=== PATIENT | female | born 1970 | race Caucasian/White ===

== ENCOUNTER 2021-04-16 20:17 | Observation (INO) | payer OTHER ==
[2021-04-16] MEDS ORDERED: METOCLOPRAMIDE 5 MG/ML 2 ML VIAL IVP STA (21:15)
[2021-04-16] MEDS ORDERED: MORPHINE SULFATE 4 MG/ML SYRINGE IV STA (21:15)
[2021-04-16] MEDS ORDERED: SODIUM CHLORIDE 0.9% 1,000 ML IV STA ×2 (21:15→22:20)
[2021-04-16] MEDS ORDERED: diphenhydrAMINE 50 MG/ML 1 ML VIAL IVP STA (21:15)
[2021-04-16] MEDS ORDERED: FAMOTIDINE 20 MG/2 ML VIAL IV STA (21:16)
[2021-04-16 21:36] LABS: Basophils % (A) 0 %; Eosinophils % (A) 0 %; HCT 48.7 % (34.0-46.0); HGB 16.8 gm/dL (11.4-16.0); Lymphocytes # (A) 0.6 k/uL (1.0-4.8); Lymphocytes % (A) 4 %; MCH 33.7 pg (25.0-35.0); MCHC 34.5 g/dL (31.0-37.0); MCV 97.5 fL (80.0-100.0); Mean Platelet Volume 7.1; Monocytes # (A) 0.3 k/uL (0-1.0); Monocytes % (A) 2 %; Neutrophils # (A) 14.2 k/uL (1.3-7.7); Neutrophils % (A) 93 %; Platelet Count 402 k/uL (150-450); RBC 4.99 m/uL (3.80-5.40); RDW 12.7 % (11.5-15.5); WBC 15.3 k/uL (3.8-10.6)
[2021-04-16 21:51] LABS: ALT 21 U/L (4-34); AST 25 U/L (14-36); African American GFR (CKD) >90 (>60 ml/min/1.73 sqM); Alkaline Phosphatase 77 U/L (38-126); Amylase 44 U/L (30-110); Anion Gap 17 mmol/L; Blood Urea Nitrogen 17 mg/dL (7-17); Calcium 10.2 mg/dL (8.4-10.2); Carbon Dioxide 21 mmol/L (22-30); Chloride 100 mmol/L (98-107); Glucose 168 mg/dL (74-99); Lipase 27 U/L (23-300); Non-African American GFR(CKD) >90 (>60 ml/min/1.73 sqM); Sodium 138 mmol/L (137-145); Total Bilirubin 1.2 mg/dL (0.2-1.3)
[2021-04-16 21:52] LABS: INR 0.9 (<1.2); Partial Thromboplastin Time 21.1 sec (22.0-30.0); Prothrombin Time 10.3 sec (9.0-12.0)
[2021-04-16] MEDS ORDERED: HALOPERIDOL LACTATE 5 MG/ML 1 ML VIAL IVP STA (22:05)
[2021-04-16] MEDS ORDERED: MAGNESIUM SULFATE-D5W PMX 1 GM in DEXTROSE/WATER 1 100ML.BAG IVPB ONE (22:12)
--- NOTE | 2021-04-16 22:28 | CT ---
EXAMINATION TYPE: CT abdomen pelvis w con DATE OF EXAM: 04/16/2021 COMPARISON: None HISTORY: Abdominal pain CT DLP: mGycm Automated exposure control for dose reduction was used. CONTRAST: The contrast was Isovue 100 mL. Lung bases are clear. There is no pleural effusion. Heart size is normal. There is no pericardial eff usion. Liver spleen stomach and pancreas gallbladder appear intact. The bile ducts are not dilated. There is no free fluid. There is no adrenal mass. Kidneys show satisfactory contrast opacification. T here is no hydronephrosis. Delayed images show normal renal excretion. Bladder distends smoothly. The re is no inguinal hernia. Terminal ileum is intact. Appendix is medial and appears normal. Tip of the appendix is in the right lower pelvis. There is no mesenteric edema. There is no ascites or free air. There is no bowel obstruction. The douglas brunilda is anteverted. There is no pelvic mass. The lumbar vertebra have normal alignment. There is degenerative disc space narrowing at L4-5 with va cuum disc and spurring. No compression fracture. The bony pelvis is intact. The hip joints are intact . IMPRESSION: Normal appendix. No sign of acute abdomen and pelvis.
--- NOTE | 2021-04-16 22:32 | XR ---
EXAMINATION TYPE: XR chest 2V DATE OF EXAM: 04/16/2021 COMPARISON: NONE HISTORY: Pain TECHNIQUE: 2 views FINDINGS: Heart and mediastinum are normal. Lungs are clear. Diaphragm is normal. Bony thorax appears normal. IMPRESSION: Normal chest.
[2021-04-16] MEDS ORDERED: POTASSIUM CHLORIDE ER 20 MEQ TAB.ER PO STA (22:34)
[2021-04-16] MEDS ORDERED: NALOXONE 0.4 MG/ML 1 ML VIAL IV PRN (23:08)
[2021-04-16] MEDS ORDERED: ONDANSETRON 4 MG/2 ML VIAL IVP PRN (23:08)
--- NOTE | 2021-04-16 23:08 | ED ---
General Adult HPI - General Chief complaint: Abdominal Pain Stated complaint: Vomiting Time Seen by Provider: 04/16/21 21:09 Source: patient, RN notes reviewed, old records reviewed Mode of arrival: wheelchair Limitations: no limitations - History of Present Illness Initial comments: Patient is a 51-year-old female who presents emergency Department complaining of epigastric abdominal pain with nausea and vomiting starting at 9 AM today. She states this is happened previously. She does endorse daily marijuana use. Possibly she may have a heart history as well. Also has a history diverticulitis. Describes emesis is nonbilious nonbloody. States she may have had an episode of diarrhea as well. Describes abdominal pain as achy, sharp primarily epigastric region with no radiation elsewhere. Denies any chest pain, shortness of breath. Continues to say she is nauseous. She has no other acute complaints at this time. Presents over concern for her nausea and vomiting. - Related Data Allergies Allergy/AdvReac Type Severity Reaction Status Date / Time sulfamethoxazole Allergy Nausea & Verified 04/16/21 20:23 [From Bactrim] Vomiting & Diarrhea trimethoprim [From Bactrim] Allergy Nausea & Verified 04/16/21 20:23 Vomiting & Diarrhea Review of Systems ROS Statement: Those systems with pertinent positive or pertinent negative responses have been documented in the HPI. Review of Systems: CONST: Denies fever EYES: Denies blurry vision ENT: Denies nasal congestion C/V: Denies Chest pain RESP: Denies shortness of breath GI: Endorses epigastric abdominal pain : Denies dysuria SKIN: Denies rash. MSK: Denies joint pain. NEURO: Denies headache ROS Other: All systems not noted in ROS Statement are negative. Past Medical History Past Medical History: Coronary Artery Disease (CAD) Additional Past Medical History / Comment(s): diverticulitis History of Any Multi-Drug Resistant Organisms: None Reported Past Surgical History: Heart Catheterization With Stent Past Psychological History: No Psychological Hx Reported Smoking Status: Current every day smoker Past Alcohol Use History: None Reported Past Drug Use History: Marijuana General Exam - General Exam Comments Initial Comments: General: Appears in mild to moderate distress secondary to active nausea. Patient is dry heaving at bedside. HEAD: Normal with no signs of head trauma. EYES: PERRLA, EOMI, conjunctiva normal, no discharge. ENT: Hearing grossly intact, normal oropharynx. Dry oropharynx. RESPIRATORY: Clear breath sounds bilaterally. No wheezes, rales, or rhonchi. C/V: Regular rate and rhythm. S1 and S2 auscultated, no edema, peripheral pulses 2+ and intact throughout ABD: Abdomen is soft, nondistended. Patient is mildly tender to palpation epigastric region. No guarding. No rebound tenderness. No peritoneal signs. No CVA tenderness to percussion. EXT: Normal range of motion, no obvious deformity SKIN: No rashes or lesions observed on exposed skin. NEURO: Alert and oriented 4. No focal deficits. Limitations: no limitations Course Vital Signs 04/16/21 04/16/21 04/16/21 20:19 21:15 21:43 Temperature 98.1 F Pulse Rate 57 L 67 75 Respiratory 22 22 22 Rate Blood Pressure 116/53 128/78 138/94 O2 Sat by Pulse 99 98 100 Oximetry 04/16/21 22:00 Temperature Pulse Rate 77 Respiratory 22 Rate Blood Pressure 137/87 O2 Sat by Pulse 98 Oximetry Medical Decision Making - Medical Decision Making This and the patient's presentation and physical exam, there was concern for intra-abdominal process for current symptoms. Therefore we will sent likely to the patient with a GI cocktail as well as IV fluids. We will obtain abdominal laboratory studies, CT and pelvis, as well as a cardiac workup for atypical p resentation of ACS. Patient was in agreement this plan. EKG showed a left bundle branch block of unknown chronicity, but no other signs of acute ischemia. Chest x-ray revealed no acute cardiopulmonary process. CT of the pelvis revealed no acute intra-abdominal process. Lavatory studies are remarkable for a lactic acidosis of 3.1 as well as signs of hemoconcentration and elevated to WVC, hemoglobin and platelet count. Troponin is negative. Potassium is low at 3.0, we will replace with IV potassium. Patient's lavatory studies are likely secondary to dehydration from her nausea and vomiting. She did require re-dosing with Haldol for nausea. I did discuss the findings with the patient. I believe it is best the patient be admitted to the hospital at this time. She was in agreement this plan. The observation admitting attending, Dr. Sheffield was in agreement this plan. Repeat lactic acid will be obtained following fluid hydration. - Lab Data Result diagrams: 04/16/21 21:21 04/16/21 21:21 Lab Results 04/16/21 04/16/21 04/16/21 Range/Units 21:21 21:21 21:21 WBC 15.3 H (3.8-10.6) k/uL RBC 4.99 (3.80-5.40) m/uL Hgb 16.8 H (11.4-16.0) gm/dL Hct 48.7 H (34.0-46.0) % MCV 97.5 (80.0-100.0) fL MCH 33.7 (25.0-35.0) pg MCHC 34.5 (31.0-37.0) g/dL RDW 12.7 (11.5-15.5) % Plt Count 402 (150-450) k/uL MPV 7.1 Neutrophils % 93 % Lymphocytes % 4 % Monocytes % 2 % Eosinophils % 0 % Basophils % 0 % Neutrophils # 14.2 H (1.3-7.7) k/uL Lymphocytes # 0.6 L (1.0-4.8) k/uL Monocytes # 0.3 (0-1.0) k/uL Eosinophils # 0.0 (0-0.7) k/uL Basophils # 0.0 (0-0.2) k/uL PT 10.3 (9.0-12.0) sec INR 0.9 (<1.2) APTT 21.1 L (22.0-30.0) sec Sodium 138 (137-145) mmol/L Potassium 3.0 L (3.5-5.1) mmol/L Chloride 100 (98-107) mmol/L Carbon Dioxide 21 L (22-30) mmol/L Anion Gap 17 mmol/L BUN 17 (7-17) mg/dL Creatinine 0.72 (0.52-1.04) mg/dL Est GFR (CKD-EPI)AfAm >90 (>60 ml/min/1.73 sqM) Est GFR (CKD-EPI)NonAf >90 (>60 ml/min/1.73 sqM) Glucose 168 H (74-99) mg/dL Plasma Lactic Acid Anthony (0.7-2.0) mmol/L Calcium 10.2 (8.4-10.2) mg/dL Total Bilirubin 1.2 (0.2-1.3) mg/dL AST 25 (14-36) U/L ALT 21 (4-34) U/L Alkaline Phosphatase 77 (38-126) U/L Troponin I (0.000-0.034) ng/mL Total Protein 8.0 (6.3-8.2) g/dL Albumin 5.0 (3.5-5.0) g/dL Amylase 44 (30-110) U/L Lipase 27 (23-300) U/L 04/16/21 04/16/21 Range/Units 21:21 21:21 WBC (3.8-10.6) k/uL RBC (3.80-5.40) m/uL Hgb (11.4-16.0) gm/dL Hct (34.0-46.0) % MCV (80.0-100.0) fL MCH (25.0-35.0) pg MCHC (31.0-37.0) g/dL RDW (11.5-15.5) % Plt Count (150-450) k/uL MPV Neutrophils % % Lymphocytes % % Monocytes % % Eosinophils % % Basophils % % Neutrophils # (1.3-7.7) k/uL Lymphocytes # (1.0-4.8) k/uL Monocytes # (0-1.0) k/uL Eosinophils # (0-0.7) k/uL Basophils # (0-0.2) k/uL PT (9.0-12.0) sec INR (<1.2) APTT (22.0-30.0) sec Sodium (137-145) mmol/L Potassium (3.5-5.1) mmol/L Chloride (98-107) mmol/L Carbon Dioxide (22-30) mmol/L Anion Gap mmol/L BUN (7-17) mg/dL Creatinine (0.52-1.04) mg/dL Est GFR (CKD-EPI)AfAm (>60 ml/min/1.73 sqM) Est GFR (CKD-EPI)NonAf (>60 ml/min/1.73 sqM) Glucose (74-99) mg/dL Plasma Lactic Acid Anthony 3.1 H* (0.7-2.0) mmol/L Calcium (8.4-10.2) mg/dL Total Bilirubin (0.2-1.3) mg/dL AST (14-36) U/L ALT (4-34) U/L Alkaline Phosphatase (38-126) U/L Troponin I <0.012 (0.000-0.034) ng/mL Total Protein (6.3-8.2) g/dL Albumin (3.5-5.0) g/dL Amylase (30-110) U/L Lipase (23-300) U/L - EKG Data -: EKG Interpreted by Me EKG Comments: 12-lead Electrocardiogram Interpretation Note EKG was reviewed and interpreted by myself. 12-lead ECG performed at 2250 is interpreted by me as revealing normal sinus rhythm at a rate of 78 beats per minute. [place] is normal. MS interval is 163 ms, QRS duration is 146 ms, QTc is 477 ms.. There is a left bundle branch block present. There were no ST or T wave abnormalities to suggest myocardial ischemia or injury. R wave progression across the precordium was satisfactory. By my interpretation this EKG is non- diagnostic for acute ischemia. Disposition Clinical Impression: Dehydration, Intractable nausea and vomiting, Lactic acidosis Disposition: ADMITTED IP TO THIS HOSP Condition: Stable Referrals: None,Stated [Primary Care Provider] - 1-2 days
[2021-04-16] MEDS: POTASSIUM CHLORIDE 10 MEQ in WATER FOR INJECTION 1 100ML.BAG IVPB SCH (23:32)
[2021-04-16] MEDS: SODIUM CHLORIDE 0.9% 1,000 ML IV SCH (23:34)
[2021-04-17] MEDS: MELATONIN 3 MG TABLET PO SCH ×2 (00:59→19:34)
[2021-04-17] MEDS: POTASSIUM CHLORIDE 10 MEQ in WATER FOR INJECTION 1 100ML.BAG IVPB SCH (01:00)
[2021-04-17] MEDS ORDERED: POTASSIUM CHLORIDE ER 20 MEQ TAB.ER PO STA (01:20)
--- NOTE | 2021-04-17 01:21 | P.HPIM ---
History of Present Illness H&P Date: 04/16/21 Patient is a 51-year-old female with image of marijuana abuse who presents to the emergency room with complaints of nausea, vomiting, abdominal pain. Patient reports that his symptoms started yesterday morning at around 9 AM and have symptoms persisted. She reports minimal oral intake due to her significant episodes of vomiting. She reports daily heavy use of marijuana with last use the night prior to the onset of symptoms. Reports feeling tired along with an achy diffuse abdominal discomfort due to vomiting. Denied additional complaints. Denied fever, chills, chest pain, shortness of breath, cough, or diarrhea. Laboratory evaluation was unremarkable for lactic acidosis at 3.1, potassium 3.0, bili 6 out of 15.3, hemoglobin 16.8. CT abdomen and pelvis was unremarkable with chest x-ray unremarkable and EKG showing sinus rhythm with sinus arrhythmia at 78 bpm with a left bundle branch block (no prior EKGs available for comparison). Review of systems: Pertinent positives and negatives as discussed in HPI, a complete review of systems was performed and all other systems are negative. Physical examination: General: non toxic, no distress, appears at stated age, overweight Derm: no unusual rashes/lesions no unusual ecchymoses, warm, dry Head: atraumatic, normocephalic, symmetric Eyes: EOMI, no lid lag, anicteric sclera, pupils equal round reactive to light ENT: Nose and ears atraumatic, no thrush, no pharyngeal erythema Neck: No thyromegaly, no cervical lymphadenopathy, trachea midline, supple Mouth: no lip lesion, mucus membranes very dry Cardiovascular: S1S2 reg, no murmur, positive posterior tibial pulse bilateral, no edema, capillary refill less than 2 seconds Lungs: CTA bilateral, no rhonchi, no rales , no accessory muscle use Abdominal: soft, nontender to palpation, no guarding, no appreciable organomegaly, normal bowel sounds Ext: no gross muscle atrophy, muscle strength 4 out of 5 in all 4 extremities grossly, no contractures, Neuro: CN II-XI grossly intact, light touch intact all 4 extremities, finger to nose within normal limits, Psych: Alert, oriented, appropriate affect Assessment/plan Intractable nausea and vomiting, possibly secondary to hyperemesis cannabinoid syndrome -Antiemetics -IV fluids -Advised on importance of cessation for marijuana use -Advance diet as tolerated Lactic acidosis -Continue with IV fluids -Monitor for resolutiona Elevated WBC count and hemoglobin -Suspected due to hemoconcentration from dehydration -Monitor for now Hypokalemia -Replace and monitor Hyperglycemia -Check A1c -Insulin sliding scale and blood glucose monitoring DVT prophylaxis -Heparin subq The patient is admitted with an anticipated less than 2 midnight stay for evaluation of nausea and vomiting CODE STATUS: Full Code Discussed with: Patient Anticipated discharge date: in am Anticipated discharge place: Home Past Medical History Past Medical History: Coronary Artery Disease (CAD) Additional Past Medical History / Comment(s): diverticulitis History of Any Multi-Drug Resistant Organisms: None Reported Past Surgical History: Heart Catheterization With Stent Past Psychological History: No Psychological Hx Reported Smoking Status: Current every day smoker Past Alcohol Use History: None Reported Past Drug Use History: Marijuana Medications and Allergies Allergies Allergy/AdvReac Type Severity Reaction Status Date / Time sulfamethoxazole Allergy Nausea & Verified 04/16/21 20:23 [From Bactrim] Vomiting & Diarrhea trimethoprim [From Bactrim] Allergy Nausea & Verified 04/16/21 20:23 Vomiting & Diarrhea Physical Exam Vitals: Vital Signs Temp Pulse Resp BP Pulse Ox 04/16/21 22:00 77 22 137/87 98 04/16/21 21:43 75 22 138/94 100 04/16/21 21:15 67 22 128/78 98 04/16/21 20:19 98.1 F 57 L 22 116/53 99 Intake and Output 04/16/21 04/16/21 04/17/21 14:59 22:59 07:59 Other: Weight 61.235 kg Results CBC & Chem 7: 04/16/21 21:21 04/16/21 21:21 Labs: Abnormal Lab Results - Last 24 Hours (Table) 04/16/21 04/16/21 04/16/21 Range/Units 21:21 21:21 21:21 WBC 15.3 H (3.8-10.6) k/uL Hgb 16.8 H (11.4-16.0) gm/dL Hct 48.7 H (34.0-46.0) % Neutrophils # 14.2 H (1.3-7.7) k/uL Lymphocytes # 0.6 L (1.0-4.8) k/uL APTT 21.1 L (22.0-30.0) sec Potassium 3.0 L (3.5-5.1) mmol/L Carbon Dioxide 21 L (22-30) mmol/L Glucose 168 H (74-99) mg/dL Plasma Lactic Acid Anthony (0.7-2.0) mmol/L 04/16/21 Range/Units 21:21 WBC (3.8-10.6) k/uL Hgb (11.4-16.0) gm/dL Hct (34.0-46.0) % Neutrophils # (1.3-7.7) k/uL Lymphocytes # (1.0-4.8) k/uL APTT (22.0-30.0) sec Potassium (3.5-5.1) mmol/L Carbon Dioxide (22-30) mmol/L Glucose (74-99) mg/dL Plasma Lactic Acid Anthony 3.1 H* (0.7-2.0) mmol/L
[2021-04-17 01:39] LABS: Appearance,Urine Clear (Clear); Bilirubin,Urine Negative (Negative); Blood,Urine Negative (Negative); Color,Urine Yellow; Glucose,Urine (UA) Negative (Negative); Ketones,Urine 4+ (Negative); Leukocyte Esterase,Urine Negative (Negative); Nitrite,Urine Negative (Negative); Protein,Urine Trace (Negative); Specific Gravity,Urine >1.050 (1.001-1.035); Urobilinogen,Urine <2.0 mg/dL (<2.0)
[2021-04-17 07:03] LABS: Basophils % (A) 0 %; Eosinophils % (A) 0 %; HCT 42.7 % (34.0-46.0); HGB 14.2 gm/dL (11.4-16.0); Lymphocytes # (A) 0.8 k/uL (1.0-4.8); Lymphocytes % (A) 7 %; MCH 32.5 pg (25.0-35.0); MCHC 33.1 g/dL (31.0-37.0); MCV 98.2 fL (80.0-100.0); Mean Platelet Volume 6.9; Monocytes # (A) 0.4 k/uL (0-1.0); Monocytes % (A) 3 %; Neutrophils # (A) 11.1 k/uL (1.3-7.7); Neutrophils % (A) 89 %; Platelet Count 282 k/uL (150-450); RBC 4.35 m/uL (3.80-5.40); RDW 12.4 % (11.5-15.5); WBC 12.5 k/uL (3.8-10.6)
[2021-04-17 07:28] LABS: ALT 14 U/L (4-34); AST 22 U/L (14-36); African American GFR (CKD) >90 (>60 ml/min/1.73 sqM); Albumin 3.5 g/dL (3.5-5.0); Alkaline Phosphatase 45 U/L (38-126); Anion Gap 8 mmol/L; Blood Urea Nitrogen 13 mg/dL (7-17); Calcium 8.3 mg/dL (8.4-10.2); Carbon Dioxide 17 mmol/L (22-30); Chloride 109 mmol/L (98-107); Glucose 107 mg/dL (74-99); Non-African American GFR(CKD) >90 (>60 ml/min/1.73 sqM); Potassium 3.5 mmol/L (3.5-5.1); Sodium 134 mmol/L (137-145); Total Bilirubin 0.6 mg/dL (0.2-1.3); Total Protein 6.1 g/dL (6.3-8.2)
[2021-04-17 08:22] LABS: Glucose,Whole Blood 108 mg/dL (75-99)
[2021-04-17] MEDS: INSULIN ASPART (NovoLOG) 100 UNIT/ML VIAL SQ SCH ×2 (08:50→12:54)
[2021-04-17] MEDS: ACETAMINOPHEN TAB 325 MG TAB PO PRN ×2 (11:56→18:23)
[2021-04-17 12:50] LABS: Glucose,Whole Blood 120 mg/dL (75-99)
[2021-04-17] MEDS: MORPHINE SULFATE 4 MG/ML SYRINGE IV PRN ×3 (13:22→23:30)
--- NOTE | 2021-04-17 15:19 | P.PN ---
Subjective Progress Note Date: 04/17/21 Principal diagnosis: vomiting Patient is still feeling nauseous, she took few bites of her lunch did not throw up but still feel dehydrated. No fevers. No pain. Objective - Vital Signs Vital signs: Vital Signs Temp 98.5 F 04/17/21 07:32 Pulse 95 04/17/21 07:32 Resp 20 04/17/21 03:10 BP 106/67 04/17/21 07:32 Pulse Ox 100 04/17/21 07:32 Intake & Output 04/16/21 04/17/21 04/17/21 17:59 06:59 18:59 Intake Total 120 Balance 120 Weight Intake: Oral 120 Other: # Voids 1 - Exam Constitutional: No acute distress, conversant, pleasant Eyes:Anicteric sclerae, moist conjunctiva, no lid-lag, PERRLA, ENMT: Oropharynx clear, no erythema, exudates Neck: Supple, FROM, no masses, or JVD, No carotid bruits, No thyromegaly Lungs: Clear to auscultation, Clear to percussion, Normal respiratory effort, no accessory muscle use Cardiovascular: Heart regular in rate and rhythm, No murmurs, gallops, or rubs, No peripheral edema Abdominal: Soft, Nontender, no guarding, rebound or rigidity, Normoactive bowel sounds, No hepatomegaly, No splenomegaly, No palpable mass Skin: Normal temperature, tone, texture, turgor, no induration, No subcutaneous nodules, No rash, lesions, No ulcers Extremities: No digital cyanosis, No clubbing, Pedal pulses intact and symmetrical, Radial pulses intact and symmetrical, No calf tenderness Psychiatric: Alert and oriented to person, place and time, appropriate affect, intact judgement Neuro: Muscles Strength 5/5 in all 4 extremities, Sensation to light touch grossly present throughout, Cranial nerves II-XII grossly intact, no focal sensory deficits - Labs CBC & Chem 7: 04/17/21 06:28 04/17/21 06:28 Labs: Abnormal Lab Results - Last 24 Hours (Table) 04/16/21 04/16/21 04/16/21 Range/Units 21:21 21:21 21:21 WBC 15.3 H (3.8-10.6) k/uL Hgb 16.8 H (11.4-16.0) gm/dL Hct 48.7 H (34.0-46.0) % Neutrophils # 14.2 H (1.3-7.7) k/uL Lymphocytes # 0.6 L (1.0-4.8) k/uL APTT 21.1 L (22.0-30.0) sec Sodium (137-145) mmol/L Potassium 3.0 L (3.5-5.1) mmol/L Chloride (98-107) mmol/L Carbon Dioxide 21 L (22-30) mmol/L Glucose 168 H (74-99) mg/dL POC Glucose (mg/dL) (75-99) mg/dL Plasma Lactic Acid Anthony (0.7-2.0) mmol/L Calcium (8.4-10.2) mg/dL Total Protein (6.3-8.2) g/dL Ur Specific [place] (1.001-1.035) Urine Protein (Negative) Urine Ketones (Negative) 04/16/21 04/17/21 04/17/21 Range/Units 21:21 00:27 06:28 WBC 12.5 H (3.8-10.6) k/uL Hgb (11.4-16.0) gm/dL Hct (34.0-46.0) % Neutrophils # 11.1 H (1.3-7.7) k/uL Lymphocytes # 0.8 L (1.0-4.8) k/uL APTT (22.0-30.0) sec Sodium (137-145) mmol/L Potassium (3.5-5.1) mmol/L Chloride (98-107) mmol/L Carbon Dioxide (22-30) mmol/L Glucose (74-99) mg/dL POC Glucose (mg/dL) (75-99) mg/dL Plasma Lactic Acid Anthony 3.1 H* (0.7-2.0) mmol/L Calcium (8.4-10.2) mg/dL Total Protein (6.3-8.2) g/dL Ur Specific [place] >1.050 H (1.001-1.035) Urine Protein Trace H (Negative) Urine Ketones 4+ H (Negative) 04/17/21 04/17/21 04/17/21 Range/Units 06:28 08:20 12:49 WBC (3.8-10.6) k/uL Hgb (11.4-16.0) gm/dL Hct (34.0-46.0) % Neutrophils # (1.3-7.7) k/uL Lymphocytes # (1.0-4.8) k/uL APTT (22.0-30.0) sec Sodium 134 L (137-145) mmol/L Potassium (3.5-5.1) mmol/L Chloride 109 H (98-107) mmol/L Carbon Dioxide 17 L (22-30) mmol/L Glucose 107 H (74-99) mg/dL POC Glucose (mg/dL) 108 H 120 H (75-99) mg/dL Plasma Lactic Acid Anthony (0.7-2.0) mmol/L Calcium 8.3 L (8.4-10.2) mg/dL Total Protein 6.1 L (6.3-8.2) g/dL Ur Specific [place] (1.001-1.035) Urine Protein (Negative) Urine Ketones (Negative) Assessment and Plan Plan: Intractable nausea and vomiting, possibly secondary to hyperemesis cannabinoid syndrome -Antiemetics -IV fluids -Advised on importance of cessation for marijuana use -Advance diet as tolerated Lactic acidosis -Resolved, continue with IV fluids Elevated WBC count and hemoglobin -Suspected due to hemoconcentration from dehydration -Monitor for now Hypokalemia -Replace and monitor Hyperglycemia -A1c 5.3, no insulin indicated, No DM. DVT prophylaxis -Heparin subq CODE STATUS: Full Code Discussed with: Patient Anticipated discharge date: in am Anticipated discharge place: Home
[2021-04-17] MEDS: SODIUM CHLORIDE 0.9% 1,000 ML IV SCH ×2 (19:16→19:33)
[2021-04-17 21:55] LABS: Glucose,Whole Blood 144 mg/dL (75-99)
[2021-04-18] MEDS: MORPHINE SULFATE 4 MG/ML SYRINGE IV PRN ×2 (03:29→07:49)
[2021-04-18 03:31] VITALS: PULSE 69
[2021-04-18] MEDS: SODIUM CHLORIDE 0.9% 1,000 ML IV SCH (05:14)
[2021-04-18 07:40] LABS: Glucose,Whole Blood 84 mg/dL (75-99)
[2021-04-18 08:04] VITALS: BP 112/64; RESP 16; TEMP 97.7
--- NOTE | 2021-04-18 09:24 | P.DS ---
<Hua Paeg - Last Filed: 04/18/21 19:05> Providers Expected date of discharge: 04/18/21 Hospital Course: Discharge Diagnosis: Cannabinoid hyperemesis syndrome Intractable nausea and vomiting secondary to above Lactic acidosis, resolved with IV fluids Leukocytosis, improved Hypokalemia, resolved Hospital Course: Patient is a very pleasant 51-year-old female with a past medical history of daily marijuana use. Patient presents to the emergency department on 04/16/21 with a chief complaint of intractable nausea, vomiting, and abdominal pain. She was seen and evaluated in the emergency department and found to have lactic acidosis with a lactate of 3.1, hypokalemia with potassium of 3.0, and leukocytosis with WBC count of 15.3. Patient underwent a CT abdomen and pelvis with contrast negative for acute intra-abdominal or intrapelvic process. Chest x-ray negative for acute cardiopulmonary process. An EKG showing normal sinus rhythm at 78 bpm. Patient received continuous IV hydration and potassium was supplemented. Hemoglobin A1c was drawn resulting at 5.3. Patient received supportive treatment with anti-emetics resulting in full resolution of nausea, vomiting and abdominal pain. Patient seen and evaluated at bedside this morning reports full resolution of symptoms. Patient reports she is ready for discharge and is medically stable for discharge at this time. Patient denied having any further questions, concerns, or complaints. Patient medically stable for discharge and to follow up outpatient with her PCP. Patient encouraged on cessation of marijuana use. Physical examination: Patient seen and examined at bedside. She reports complete cessation of abdominal pain, nausea, vomiting, and denies having any headache, lightheade dness, dizziness, chest pain, palpitations, or shortness of breath. Vital signs reviewed and stable. General: Nontoxic, no distress and appears stated age. Derm: Skin warm and dry, normal coloration for ethnicity. Head: Atraumatic, normocephalic and symmetric. Eyes: EOMs intact, no lid lag, and anicteric sclera Mouth: no lip lesions, mucus membranes moist Cardiovascular: regular rate and rhythm with normal S1S2, no murmur, positive posterior tibial pulses bilaterally, and cap refill < 2 seconds. Lungs: Respirations even, regular, and unlabored on room air. Lungs CTA bilaterally, no rhonchi, no rales, no wheezing, and no accessory muscle usage. Abdominal: soft, nontender to palpation, no guarding, no appreciable organomegaly Ext: ROM intact. No gross muscle atrophy, no edema, no contractures Neuro: Speech clear, face symmetrical and CN II-XII grossly intact with no noted focal neuro deficits Psych: Alert and oriented to person, place, time, and situation. Appropriate and pleasant affect. A total of 45 minutes of time were spent preparing this complex discharge summary. Patient Condition at Discharge: Stable Plan - Discharge Summary Discharge Rx Participant: No New Discharge Prescriptions: New Metoclopramide [Reglan] 10 mg PO Q6H PRN #24 tab PRN Reason: Nausea And Vomiting Discharge Medication List Metoclopramide [Reglan] 10 mg PO Q6H PRN #24 tab 04/18/21 [Rx] Follow up Appointment(s)/Referral(s): Aftab Molina [STAFF PHYSICIAN] - 1 Week Patient Instructions/Handouts: Cannabis Abuse (DC), Cannabis Abuse (GEN) Activity/Diet/Wound Care/Special Instructions: Activity: As tolerated. Take breaks as needed. Diet: Heart healthy and carb consistent diet. Avoid salts, or foods with hidden salts such as canned or boxed foods and frozen dinners. Extra salt makes your heart work harder and traps the fluid in your body for longer. Special Instructions: Take all of your medications as directed and remember to keep all of your doctor's appointments and follow-up as needed. Thank you for allowing us to participate in your care, it was truly a pleasure having you for our patient!!! Discharge/Stand Alone Forms: Outpatient Counseling Discharge Disposition: HOME SELF-CARE <Jeannette Sifuentes - Last Filed: 04/19/21 18:47> Providers Date of admission: 04/16/21 23:08 Attending physician: Andrey Sheffield MD Primary care physician: Stated None Hospital Course: I reviewed the documentation as provided by the KEON above, who is the original author of this note. I agree with the documented assessment and plan, with the following changes: None
== END 2021-04-18 10:30 | disposition home or self-care (01) ==
LOC: EC 20:17 → 6NMEDSUR 23:08
PROVIDERS: ADMIT Internal Medicine; ATTEND Internal Medicine
DX: R11.2 Nausea with vomiting, unspecified (principal); F12.10 Cannabis abuse, uncomplicated; E87.2 Acidosis; D72.829 Elevated white blood cell count, unspecified; E86.0 Dehydration; E87.6 Hypokalemia; R73.9 Hyperglycemia, unspecified; I44.7 Left bundle-branch block, unspecified; F17.200 Nicotine dependence, unspecified, uncomplicated; I25.10 Atherosclerotic heart disease of native coronary artery without angina pectoris; K57.90 Diverticulosis of intestine, part unspecified, without perforation or abscess without bleeding; R10.13 Epigastric pain; Z88.2 Allergy status to sulfonamides; Z71.51 Drug abuse counseling and surveillance of drug abuser
CPT/HCPCS: 99285; 96376 ×2; 96361 ×2; 96366; 96365; 96367; 96375; 36415; 93005; 80053 ×2; 82150; 83605 ×2; 83690; 84484; 85025 ×2; 85610; 85730; 81003; 81025; 87040; 83036; 71046; 74177; G0378 ×3; J2270 ×3; J1200; J1630; J2765; J3475; J3480 ×2; Q9967

== ENCOUNTER 2021-05-24 11:15 | Emergency (ER) | payer OTHER ==
[2021-05-24 11:22] VITALS: BP 137/68; PULSE 75; RESP 18; TEMP 96.9
[2021-05-24] MEDS ORDERED: SODIUM CHLORIDE 0.9% 2,000 ML IV STA (11:23)
[2021-05-24] MEDS ORDERED: ONDANSETRON 4 MG/2 ML VIAL IVP STA (11:23)
--- NOTE | 2021-05-24 11:49 | ED ---
General Adult HPI - General Chief complaint: Nausea/Vomiting/Diarrhea Stated complaint: Vomiting Time Seen by Provider: 05/24/21 11:23 Source: patient, RN notes reviewed Mode of arrival: ambulatory Limitations: no limitations - History of Present Illness Initial comments: This a 51-year-old female presents emergency Department with chief complaint of abdominal pain, nausea vomiting. Patient states symptoms started again. She was admitted last month for similar complaints. Patient was diagnosed with cannabis hyperemesis. Patient states she has diffuse abdominal discomfort, cramping, vomiting. Patient cannot keep anything down. No fevers or chills. Patient has no dysuria no hematuria no diarrhea constipation. - Related Data Home Medications Medication Instructions Recorded Confirmed Atorvastatin [Lipitor] 40 mg PO DAILY 05/24/21 05/24/21 Clopidogrel Bisulfate [Plavix] 75 mg PO DAILY 05/24/21 05/24/21 Escitalopram [Lexapro] 20 mg PO DAILY 05/24/21 05/24/21 Potassium Chloride [Klor-Con 10 ER] 10 meq PO DAILY 05/24/21 05/24/21 carvediloL [Coreg] 3.125 mg PO BID 05/24/21 05/24/21 hydroCHLOROthiazide [Hydrodiuril] 25 mg PO DAILY 05/24/21 05/24/21 Previous Rx's Medication Instructions Recorded Ondansetron Odt [Zofran Odt] 4 mg PO Q8HR PRN #10 tab 05/24/21 Promethazine HCl [Phenergan] 50 mg RECTAL Q6HR #20 suppositor 05/24/21 Allergies Allergy/AdvReac Type Severity Reaction Status Date / Time sulfamethoxazole AdvReac Nausea & Verified 05/24/21 13:19 [From Bactrim] Vomiting & Diarrhea trimethoprim [From Bactrim] AdvReac Nausea & Verified 05/24/21 13:19 Vomiting & Diarrhea Review of Systems ROS Statement: Those systems with pertinent positive or pertinent negative responses have been documented in the HPI. ROS Other: All systems not noted in ROS Statement are negative. Past Medical History Past Medical History: Coronary Artery Disease (CAD) Additional Past Medical History / Comment(s): diverticulitis History of Any Multi-Drug Resistant Organisms: None Reported Past Surgical History: Heart Catheterization With Stent Past Anesthesia/Blood Transfusion Reactions: No Reported Reaction Date of Last Stent Placement:: 02/2021 Past Psychological History: No Psychological Hx Reported Smoking Status: Current every day smoker Past Alcohol Use History: None Reported Past Drug Use History: Marijuana General Exam Limitations: no limitations General appearance: alert, in no apparent distress Head exam: Present: atraumatic, normocephalic, normal inspection Eye exam: Present: normal appearance, PERRL, EOMI. Absent: scleral icterus, conjunctival injection, periorbital swelling ENT exam: Present: normal exam, normal oropharynx, mucous membranes moist Neck exam: Present: normal inspection. Absent: tenderness, meningismus, lymphadenopathy Respiratory exam: Present: normal lung sounds bilaterally. Absent: respiratory distress, wheezes, rales, rhonchi, stridor Cardiovascular Exam: Present: regular rate, normal rhythm, normal heart sounds. Absent: systolic murmur, diastolic murmur, rubs, gallop, clicks GI/Abdominal exam: Present: soft, tenderness (mild diffuse), normal bowel sounds. Absent: distended, guarding, rebound, rigid Back exam: Absent: CVA tenderness (R), CVA tenderness (L) Course Vital Signs 05/24/21 11:17 Temperature 96.9 F L Pulse Rate 75 Respiratory 18 Rate Blood Pressure 137/68 O2 Sat by Pulse 98 Oximetry Medical Decision Making - Medical Decision Making 51-year-old presented for nausea vomiting. Patient has history of hyperemesis related to cannabis use. She was instructed discontinued she did not discontinue. Patient was hydrated, given antiemetics she's not had any vomiting 2 hours. Patient discharged in stable condition return parameters were discussed. - Lab Data Result diagrams: 05/24/21 12:05 05/24/21 12:05 Lab Results 05/24/21 05/24/21 Range/Units 12:05 12:05 WBC 13.7 H (3.8-10.6) k/uL RBC 4.93 (3.80-5.40) m/uL Hgb 16.4 H (11.4-16.0) gm/dL Hct 47.2 H (34.0-46.0) % MCV 95.6 (80.0-100.0) fL MCH 33.3 (25.0-35.0) pg MCHC 34.9 (31.0-37.0) g/dL RDW 13.2 (11.5-15.5) % Plt Count 403 (150-450) k/uL MPV 7.3 Neutrophils % 83 % Lymphocytes % 13 % Monocytes % 3 % Eosinophils % 1 % Basophils % 0 % Neutrophils # 11.3 H (1.3-7.7) k/uL Lymphocytes # 1.7 (1.0-4.8) k/uL Monocytes # 0.4 (0-1.0) k/uL Eosinophils # 0.1 (0-0.7) k/uL Basophils # 0.0 (0-0.2) k/uL Sodium 138 (137-145) mmol/L Potassium 3.6 (3.5-5.1) mmol/L Chloride 103 (98-107) mmol/L Carbon Dioxide 25 (22-30) mmol/L Anion Gap 10 mmol/L BUN 11 (7-17) mg/dL Creatinine 0.77 (0.52-1.04) mg/dL Est GFR (CKD-EPI)AfAm >90 (>60 ml/min/1.73 sqM) Est GFR (CKD-EPI)NonAf >90 (>60 ml/min/1.73 sqM) Glucose 146 H (74-99) mg/dL Calcium 10.0 (8.4-10.2) mg/dL Total Bilirubin 1.0 (0.2-1.3) mg/dL AST 25 (14-36) U/L ALT 19 (4-34) U/L Alkaline Phosphatase 73 (38-126) U/L Total Protein 7.1 (6.3-8.2) g/dL Albumin 4.4 (3.5-5.0) g/dL Lipase 48 (23-300) U/L Disposition Clinical Impression: Cannabinoid hyperemesis syndrome Disposition: HOME SELF-CARE Condition: Stable Additional Instructions: Please return to the Emergency Department if symptoms worsen or any other concerns. Prescriptions: Promethazine HCl [Phenergan] 50 mg RECTAL Q6HR #20 suppositor Ondansetron Odt [Zofran Odt] 4 mg PO Q8HR PRN #10 tab PRN Reason: Nausea Is patient prescribed a controlled substance at d/c from ED?: No Referrals: None,Stated [Primary Care Provider] - 1-2 days Time of Disposition: 14:42
[2021-05-24 12:23] LABS: Basophils % (A) 0 %; Eosinophils # (A) 0.1 k/uL (0-0.7); Eosinophils % (A) 1 %; HCT 47.2 % (34.0-46.0); HGB 16.4 gm/dL (11.4-16.0); Lymphocytes # (A) 1.7 k/uL (1.0-4.8); Lymphocytes % (A) 13 %; MCH 33.3 pg (25.0-35.0); MCHC 34.9 g/dL (31.0-37.0); MCV 95.6 fL (80.0-100.0); Mean Platelet Volume 7.3; Monocytes # (A) 0.4 k/uL (0-1.0); Monocytes % (A) 3 %; Neutrophils # (A) 11.3 k/uL (1.3-7.7); Neutrophils % (A) 83 %; Platelet Count 403 k/uL (150-450); RBC 4.93 m/uL (3.80-5.40); RDW 13.2 % (11.5-15.5); WBC 13.7 k/uL (3.8-10.6)
[2021-05-24 12:38] LABS: ALT 19 U/L (4-34); AST 25 U/L (14-36); African American GFR (CKD) >90 (>60 ml/min/1.73 sqM); Albumin 4.4 g/dL (3.5-5.0); Alkaline Phosphatase 73 U/L (38-126); Anion Gap 10 mmol/L; Blood Urea Nitrogen 11 mg/dL (7-17); Carbon Dioxide 25 mmol/L (22-30); Chloride 103 mmol/L (98-107); Glucose 146 mg/dL (74-99); Lipase 48 U/L (23-300); Non-African American GFR(CKD) >90 (>60 ml/min/1.73 sqM); Potassium 3.6 mmol/L (3.5-5.1); Sodium 138 mmol/L (137-145); Total Protein 7.1 g/dL (6.3-8.2)
[2021-05-24] MEDS ORDERED: LORazepam 2 MG/ML INJ IV STA (13:15)
[2021-05-24] MEDS ORDERED: METOCLOPRAMIDE 5 MG/ML 2 ML VIAL IVP STA (13:15)
[2021-05-24] MEDS ORDERED: diphenhydrAMINE 50 MG/ML 1 ML VIAL IVP STA (13:15)
== END 2021-05-24 16:00 | disposition home or self-care (01) ==
LOC: EC 11:15
DX: R11.2 Nausea with vomiting, unspecified (principal); F12.90 Cannabis use, unspecified, uncomplicated; R10.84 Generalized abdominal pain; I25.10 Atherosclerotic heart disease of native coronary artery without angina pectoris; F17.200 Nicotine dependence, unspecified, uncomplicated; Z79.02 Long term (current) use of antithrombotics/antiplatelets; Z79.899 Other long term (current) drug therapy
CPT/HCPCS: 36415; 80053; 83690; 85025; 99284; 96374; 96375 ×3; 96361 ×2; J2060; J1200; J2765; J1790

== ENCOUNTER 2021-05-24 22:58 | Emergency (ER) | payer OTHER ==
[2021-05-24 23:07] VITALS: RESP 18; TEMP 97.8
[2021-05-24] MEDS ORDERED: SODIUM CHLORIDE 0.9% 1,000 ML IV ONE (23:46)
[2021-05-24] MEDS ORDERED: ONDANSETRON 4 MG/2 ML VIAL IVP STA (23:46)
[2021-05-25 00:14] LABS: Basophils # (A) 0.1 k/uL (0-0.2); Basophils % (A) 0 %; Eosinophils # (A) 0.2 k/uL (0-0.7); Eosinophils % (A) 1 %; HCT 45.5 % (34.0-46.0); HGB 15.6 gm/dL (11.4-16.0); Lymphocytes # (A) 1.3 k/uL (1.0-4.8); Lymphocytes % (A) 8 %; MCH 33.1 pg (25.0-35.0); MCHC 34.4 g/dL (31.0-37.0); MCV 96.2 fL (80.0-100.0); Mean Platelet Volume 7.5; Monocytes # (A) 0.4 k/uL (0-1.0); Monocytes % (A) 2 %; Neutrophils # (A) 14.7 k/uL (1.3-7.7); Neutrophils % (A) 88 %; Platelet Count 335 k/uL (150-450); RBC 4.73 m/uL (3.80-5.40); RDW 12.6 % (11.5-15.5); WBC 16.6 k/uL (3.8-10.6)
[2021-05-25] MEDS ORDERED: MORPHINE SULFATE 4 MG/ML SYRINGE IV STA (00:19)
[2021-05-25 00:32] LABS: ALT 20 U/L (4-34); AST 26 U/L (14-36); African American GFR (CKD) >90 (>60 ml/min/1.73 sqM); Albumin 4.7 g/dL (3.5-5.0); Alkaline Phosphatase 72 U/L (38-126); Amylase 54 U/L (30-110); Anion Gap 11 mmol/L; Blood Urea Nitrogen 13 mg/dL (7-17); Carbon Dioxide 24 mmol/L (22-30); Chloride 104 mmol/L (98-107); Glucose 124 mg/dL (74-99); Lipase 35 U/L (23-300); Non-African American GFR(CKD) >90 (>60 ml/min/1.73 sqM); Potassium 3.9 mmol/L (3.5-5.1); Sodium 139 mmol/L (137-145); Total Bilirubin 0.9 mg/dL (0.2-1.3); Total Protein 7.7 g/dL (6.3-8.2)
--- NOTE | 2021-05-25 03:58 | ED ---
Nausea/Vomiting/Diarrhea HPI - General Chief complaint: Nausea/Vomiting/Diarrhea Stated complaint: Vomiting - revisit Time Seen by Provider: 05/24/21 23:31 Source: patient Mode of arrival: ambulatory Limitations: no limitations - History of Present Illness MD complaint: nausea, vomiting -: hour(s) Description of Vomiting: food contents Associated Abdominal Pain: No Consistency: constant Improves with: none Worsens with: none Associated Symptoms: nausea/vomiting - Related Data Home Medications Medication Instructions Recorded Confirmed Atorvastatin [Lipitor] 40 mg PO DAILY 05/24/21 05/24/21 Clopidogrel Bisulfate [Plavix] 75 mg PO DAILY 05/24/21 05/24/21 Escitalopram [Lexapro] 20 mg PO DAILY 05/24/21 05/24/21 Potassium Chloride [Klor-Con 10 ER] 10 meq PO DAILY 05/24/21 05/24/21 carvediloL [Coreg] 3.125 mg PO BID 05/24/21 05/24/21 hydroCHLOROthiazide [Hydrodiuril] 25 mg PO DAILY 05/24/21 05/24/21 Previous Rx's Medication Instructions Recorded Ondansetron Odt [Zofran Odt] 4 mg PO Q8HR PRN #10 tab 05/24/21 Promethazine HCl [Phenergan] 50 mg RECTAL Q6HR #20 suppositor 05/24/21 Allergies Allergy/AdvReac Type Severity Reaction Status Date / Time sulfamethoxazole AdvReac Nausea & Verified 05/24/21 23:07 [From Bactrim] Vomiting & Diarrhea trimethoprim [From Bactrim] AdvReac Nausea & Verified 05/24/21 23:07 Vomiting & Diarrhea Review of Systems ROS Statement: Those systems with pertinent positive or pertinent negative responses have been documented in the HPI. ROS Other: All systems not noted in ROS Statement are negative. Constitutional: Denies: fever, chills Respiratory: Denies: cough, dyspnea Cardiovascular: Denies: chest pain, palpitations Gastrointestinal: Reports: nausea, vomiting. Denies: abdominal pain, diarrhea, constipation Genitourinary: Denies: dysuria, hematuria Musculoskeletal: Denies: back pain Skin: Denies: rash Neurological: Denies: headache, weakness, numbness Past Medical History Past Medical History: Coronary Artery Disease (CAD) Additional Past Medical History / Comment(s): diverticulitis History of Any Multi-Drug Resistant Organisms: None Reported Past Surgical History: Heart Catheterization With Stent Past Anesthesia/Blood Transfusion Reactions: No Reported Reaction Date of Last Stent Placement:: 02/2021 Past Psychological History: No Psychological Hx Reported Smoking Status: Current every day smoker Past Alcohol Use History: None Reported Past Drug Use History: Marijuana General Exam Limitations: no limitations General appearance: alert, in no apparent distress Head exam: Present: atraumatic, normocephalic Eye exam: Present: normal appearance. Absent: scleral icterus, conjunctival injection ENT exam: Present: normal oropharynx Neck exam: Present: normal inspection Respiratory exam: Present: normal lung sounds bilaterally. Absent: respiratory distress, wheezes, rales, rhonchi, stridor Cardiovascular Exam: Present: regular rate, normal rhythm, normal heart sounds. Absent: systolic murmur, diastolic murmur, rubs, gallop GI/Abdominal exam: Present: soft. Absent: distended, tenderness, guarding, rebound, rigid, mass Extremities exam: Present: normal inspection, normal capillary refill. Absent: pedal edema, calf tenderness Back exam: Present: normal inspection Neurological exam: Present: alert Skin exam: Present: warm, dry, intact, normal color. Absent: rash Course Vital Signs 05/24/21 05/25/21 05/25/21 23:04 00:26 02:23 Temperature 97.8 F Pulse Rate 93 74 90 Respiratory 18 18 18 Rate Blood Pressure 123/66 108/80 105/74 O2 Sat by Pulse 100 95 99 Oximetry 05/25/21 05/25/21 03:30 04:19 Temperature Pulse Rate 81 61 Respiratory 18 18 Rate Blood Pressure 104/60 104/61 O2 Sat by Pulse 96 96 Oximetry Medical Decision Making - Lab Data Result diagrams: 05/25/21 00:01 05/25/21 00:01 Lab Results 05/25/21 05/25/21 05/25/21 Range/Units 00:01 00:01 00:01 WBC 16.6 H (3.8-10.6) k/uL RBC 4.73 (3.80-5.40) m/uL Hgb 15.6 (11.4-16.0) gm/dL Hct 45.5 (34.0-46.0) % MCV 96.2 (80.0-100.0) fL MCH 33.1 (25.0-35.0) pg MCHC 34.4 (31.0-37.0) g/dL RDW 12.6 (11.5-15.5) % Plt Count 335 (150-450) k/uL MPV 7.5 Neutrophils % 88 % Lymphocytes % 8 % Monocytes % 2 % Eosinophils % 1 % Basophils % 0 % Neutrophils # 14.7 H (1.3-7.7) k/uL Lymphocytes # 1.3 (1.0-4.8) k/uL Monocytes # 0.4 (0-1.0) k/uL Eosinophils # 0.2 (0-0.7) k/uL Basophils # 0.1 (0-0.2) k/uL Sodium 139 (137-145) mmol/L Potassium 3.9 (3.5-5.1) mmol/L Chloride 104 (98-107) mmol/L Carbon Dioxide 24 (22-30) mmol/L Anion Gap 11 mmol/L BUN 13 (7-17) mg/dL Creatinine 0.65 (0.52-1.04) mg/dL Est GFR (CKD-EPI)AfAm >90 (>60 ml/min/1.73 sqM) Est GFR (CKD-EPI)NonAf >90 (>60 ml/min/1.73 sqM) Glucose 124 H (74-99) mg/dL Plasma Lactic Acid Anthony 1.4 (0.7-2.0) mmol/L Calcium 10.0 (8.4-10.2) mg/dL Total Bilirubin 0.9 (0.2-1.3) mg/dL AST 26 (14-36) U/L ALT 20 (4-34) U/L Alkaline Phosphatase 72 (38-126) U/L Total Protein 7.7 (6.3-8.2) g/dL Albumin 4.7 (3.5-5.0) g/dL Amylase 54 (30-110) U/L Lipase 35 (23-300) U/L Urine Color Urine Appearance (Clear) Urine pH (5.0-8.0) Ur Specific [place] (1.001-1.035) Urine Protein (Negative) Urine Glucose (UA) (Negative) Urine Ketones (Negative) Urine Blood (Negative) Urine Nitrite (Negative) Urine Bilirubin (Negative) Urine Urobilinogen (<2.0) mg/dL Ur Leukocyte Esterase (Negative) Urine RBC (0-5) /hpf Urine WBC (0-5) /hpf Ur Squamous Epith Cells (0-4) /hpf Urine Mucus (None) /hpf 05/25/21 Range/Units 03:00 WBC (3.8-10.6) k/uL RBC (3.80-5.40) m/uL Hgb (11.4-16.0) gm/dL Hct (34.0-46.0) % MCV (80.0-100.0) fL MCH (25.0-35.0) pg MCHC (31.0-37.0) g/dL RDW (11.5-15.5) % Plt Count (150-450) k/uL MPV Neutrophils % % Lymphocytes % % Monocytes % % Eosinophils % % Basophils % % Neutrophils # (1.3-7.7) k/uL Lymphocytes # (1.0-4.8) k/uL Monocytes # (0-1.0) k/uL Eosinophils # (0-0.7) k/uL Basophils # (0-0.2) k/uL Sodium (137-145) mmol/L Potassium (3.5-5.1) mmol/L Chloride (98-107) mmol/L Carbon Dioxide (22-30) mmol/L Anion Gap mmol/L BUN (7-17) mg/dL Creatinine (0.52-1.04) mg/dL Est GFR (CKD-EPI)AfAm (>60 ml/min/1.73 sqM) Est GFR (CKD-EPI)NonAf (>60 ml/min/1.73 sqM) Glucose (74-99) mg/dL Plasma Lactic Acid Anthony (0.7-2.0) mmol/L Calcium (8.4-10.2) mg/dL Total Bilirubin (0.2-1.3) mg/dL AST (14-36) U/L ALT (4-34) U/L Alkaline Phosphatase (38-126) U/L Total Protein (6.3-8.2) g/dL Albumin (3.5-5.0) g/dL Amylase (30-110) U/L Lipase (23-300) U/L Urine Color Yellow Urine Appearance Cloudy H (Clear) Urine pH 6.0 (5.0-8.0) Ur Specific [place] 1.032 (1.001-1.035) Urine Protein 1+ H (Negative) Urine Glucose (UA) Negative (Negative) Urine Ketones 4+ H (Negative) Urine Blood Negative (Negative) Urine Nitrite Negative (Negative) Urine Bilirubin Negative (Negative) Urine Urobilinogen 2.0 (<2.0) mg/dL Ur Leukocyte Esterase Negative (Negative) Urine RBC 2 (0-5) /hpf Urine WBC <1 (0-5) /hpf Ur Squamous Epith Cells 8 H (0-4) /hpf Urine Mucus Many H (None) /hpf Disposition Clinical Impression: Vomiting Disposition: HOME SELF-CARE Condition: Fair Instructions (If sedation given, give patient instructions): Acute Nausea and Vomiting (ED) Is patient prescribed a controlled substance at d/c from ED?: No Referrals: None,Stated [Primary Care Provider] - 1-2 days
[2021-05-25 04:13] LABS: Appearance,Urine Cloudy (Clear); Bilirubin,Urine Negative (Negative); Blood,Urine Negative (Negative); Color,Urine Yellow; Glucose,Urine (UA) Negative (Negative); Ketones,Urine 4+ (Negative); Leukocyte Esterase,Urine Negative (Negative); Mucus,Urine Many /hpf; Nitrite,Urine Negative (Negative); Protein,Urine 1+ (Negative); RBC,Urine 2 /hpf (0-5); Specific Gravity,Urine 1.032 (1.001-1.035); Squamous Epithelial Cell,Urine 8 /hpf (0-4); WBC,Urine <1 /hpf (0-5)
[2021-05-25 04:20] VITALS: BP 104/61; PULSE 61
== END 2021-05-25 04:20 | disposition home or self-care (01) ==
LOC: EC 22:58
DX: R11.2 Nausea with vomiting, unspecified (principal); I25.10 Atherosclerotic heart disease of native coronary artery without angina pectoris; F17.200 Nicotine dependence, unspecified, uncomplicated; F12.90 Cannabis use, unspecified, uncomplicated; Z79.899 Other long term (current) drug therapy
CPT/HCPCS: 36415; 80053; 82150; 83605; 83690; 85025; 81001; 99284; 96374; 96375; 96361; J2270; J2405

== ENCOUNTER 2022-01-27 10:20 | Observation (INO) | payer OTHER ==
[2022-01-27] MEDS ORDERED: NITROGLYCERIN SL TABS 0.4 MG TAB SUBLINGUAL STA ×3 (10:28)
[2022-01-27] MEDS ORDERED: ASPIRIN 81 MG PO STA (10:28)
--- NOTE | 2022-01-27 10:31 | ED ---
General Adult HPI - General Chief complaint: Chest Pain Stated complaint: chest pain Time Seen by Provider: 01/27/22 10:25 Source: patient, family, RN notes reviewed Mode of arrival: ambulatory Limitations: no limitations - History of Present Illness Initial comments: Patient is a pleasant 51-year-old female presenting to the emergency department with concerns with chest discomfort. Symptoms have been occurring for several weeks however much worse today. Patient does have history of 2 previous heart attacks, unclear if this feels similar to that or not. Patient has a difficult time describing her discomfort. Patient states it is somewhat severe at this time. Patient does have some associated nausea and did vomit. Patient felt a little bit sweaty earlier. Patient feels somewhat short of breath. Discomfort is right sternal region. - Related Data Home Medications Medication Instructions Recorded Confirmed Atorvastatin [Lipitor] 40 mg PO DAILY 05/24/21 01/27/22 Clopidogrel Bisulfate [Plavix] 75 mg PO DAILY 05/24/21 01/27/22 Escitalopram [Lexapro] 20 mg PO DAILY 05/24/21 01/27/22 Potassium Chloride [Klor-Con 10 ER] 10 meq PO DAILY 05/24/21 01/27/22 carvediloL [Coreg] 3.125 mg PO BID 05/24/21 01/27/22 hydroCHLOROthiazide [Hydrodiuril] 25 mg PO DAILY 05/24/21 01/27/22 Allergies Allergy/AdvReac Type Severity Reaction Status Date / Time sulfamethoxazole AdvReac Nausea & Verified 01/27/22 10:59 [From Bactrim] Vomiting & Diarrhea trimethoprim [From Bactrim] AdvReac Nausea & Verified 01/27/22 10:59 Vomiting & Diarrhea Review of Systems ROS Statement: Those systems with pertinent positive or pertinent negative responses have been documented in the HPI. ROS Other: All systems not noted in ROS Statement are negative. Constitutional: Denies: fever Eyes: Denies: eye pain ENT: Denies: ear pain Respiratory: Reports: dyspnea. Denies: cough Cardiovascular: Reports: chest pain Endocrine: Denies: fatigue Gastrointestinal: Denies: abdominal pain Genitourinary: Denies: dysuria Musculoskeletal: Denies: back pain Skin: Denies: rash Neurological: Denies: weakness Past Medical History Past Medical History: Coronary Artery Disease (CAD) Additional Past Medical History / Comment(s): diverticulitis History of Any Multi-Drug Resistant Organisms: None Reported Past Surgical History: Heart Catheterization With Stent Past Anesthesia/Blood Transfusion Reactions: No Reported Reaction Date of Last Stent Placement:: 02/2021 Past Psychological History: No Psychological Hx Reported Smoking Status: Current every day smoker Past Alcohol Use History: None Reported Past Drug Use History: Marijuana General Exam Limitations: no limitations General appearance: alert Head exam: Present: normocephalic Eye exam: Present: normal appearance Neck exam: Present: normal inspection Respiratory exam: Present: normal lung sounds bilaterally. Absent: chest wall tenderness Cardiovascular Exam: Present: regular rate, normal rhythm Expanded Peripheral pulses: 2+: Radial (R), Radial (L), Posterior Tibialis (R), Posterior Tibialis (L) GI/Abdominal exam: Present: soft. Absent: tenderness Extremities exam: Present: normal inspection. Absent: pedal edema, calf tendern ess Neurological exam: Present: alert. Absent: motor sensory deficit Psychiatric exam: Present: anxious Skin exam: Present: normal color Course Vital Signs 01/27/22 10:22 Temperature 98 F Pulse Rate 64 Respiratory 20 Rate Blood Pressure 127/84 O2 Sat by Pulse 100 Oximetry EKG Findings - EKG Results: EKG: interpreted by ERMD (Left-sided bundle-branch block. Previous EKG reviewed dated 04/16/21 also with left bundle branch block), sinus rhythm, normal axis EKG shows: bradycardia Medical Decision Making - Medical Decision Making Patient reevaluated. Patient states chest discomfort is improved. Patient still feels nauseated. Patient is complaining of diffuse body pain. Patient states she normally takes pain medication however has been unable to and is fearful she is going through withdrawal. Patient does have clinical appearance similar to this. Patient will be held for cardiac evaluation. Case discussed with Dr. Kwok, who will admit for hospital call. - Lab Data Result diagrams: 01/27/22 10:37 01/27/22 10:37 Lab Results 01/27/22 01/27/22 01/27/22 Range/Units 10:37 10:37 10:37 WBC 14.5 H (3.8-10.6) k/uL RBC 5.21 (3.80-5.40) m/uL Hgb 16.9 H (11.4-16.0) gm/dL Hct 48.1 H (34.0-46.0) % MCV 92.3 (80.0-100.0) fL MCH 32.4 (25.0-35.0) pg MCHC 35.1 (31.0-37.0) g/dL RDW 11.8 (11.5-15.5) % Plt Count 337 (150-450) k/uL MPV 7.0 Neutrophils % 78 % Lymphocytes % 17 % Monocytes % 3 % Eosinophils % 1 % Basophils % 0 % Neutrophils # 11.3 H (1.3-7.7) k/uL Lymphocytes # 2.5 (1.0-4.8) k/uL Monocytes # 0.5 (0-1.0) k/uL Eosinophils # 0.1 (0-0.7) k/uL Basophils # 0.1 (0-0.2) k/uL PT 9.4 (9.0-12.0) sec INR 0.9 (<1.2) APTT 23.7 (22.0-30.0) sec D-Dimer 0.44 (<0.60) mg/L FEU Sodium 135 L (137-145) mmol/L Potassium 3.2 L (3.5-5.1) mmol/L Chloride 102 (98-107) mmol/L Carbon Dioxide 23 (22-30) mmol/L Anion Gap 10 mmol/L BUN 13 (7-17) mg/dL Creatinine 0.71 (0.52-1.04) mg/dL Est GFR (CKD-EPI)AfAm >90 (>60 ml/min/1.73 sqM) Est GFR (CKD-EPI)NonAf >90 (>60 ml/min/1.73 sqM) Glucose 128 H (74-99) mg/dL Calcium 9.9 (8.4-10.2) mg/dL Magnesium 2.0 (1.6-2.3) mg/dL Total Bilirubin 0.9 (0.2-1.3) mg/dL AST 31 (14-36) U/L ALT 28 (4-34) U/L Alkaline Phosphatase 94 (38-126) U/L Troponin I (0.000-0.034) ng/mL Total Protein 7.6 (6.3-8.2) g/dL Albumin 4.9 (3.5-5.0) g/dL Amylase 65 (30-110) U/L Lipase 152 (23-300) U/L 01/27/22 Range/Units 10:37 WBC (3.8-10.6) k/uL RBC (3.80-5.40) m/uL Hgb (11.4-16.0) gm/dL Hct (34.0-46.0) % MCV (80.0-100.0) fL MCH (25.0-35.0) pg MCHC (31.0-37.0) g/dL RDW (11.5-15.5) % Plt Count (150-450) k/uL MPV Neutrophils % % Lymphocytes % % Monocytes % % Eosinophils % % Basophils % % Neutrophils # (1.3-7.7) k/uL Lymphocytes # (1.0-4.8) k/uL Monocytes # (0-1.0) k/uL Eosinophils # (0-0.7) k/uL Basophils # (0-0.2) k/uL PT (9.0-12.0) sec INR (<1.2) APTT (22.0-30.0) sec D-Dimer (<0.60) mg/L FEU Sodium (137-145) mmol/L Potassium (3.5-5.1) mmol/L Chloride (98-107) mmol/L Carbon Dioxide (22-30) mmol/L Anion Gap mmol/L BUN (7-17) mg/dL Creatinine (0.52-1.04) mg/dL Est GFR (CKD-EPI)AfAm (>60 ml/min/1.73 sqM) Est GFR (CKD-EPI)NonAf (>60 ml/min/1.73 sqM) Glucose (74-99) mg/dL Calcium (8.4-10.2) mg/dL Magnesium (1.6-2.3) mg/dL Total Bilirubin (0.2-1.3) mg/dL AST (14-36) U/L ALT (4-34) U/L Alkaline Phosphatase (38-126) U/L Troponin I <0.012 (0.000-0.034) ng/mL Total Protein (6.3-8.2) g/dL Albumin (3.5-5.0) g/dL Amylase (30-110) U/L Lipase (23-300) U/L - Radiology Data Interpreted by me: Chest x-ray shows no acute process Disposition Clinical Impression: Chest pain Disposition: ADMITTED IP TO THIS HOSP Is patient prescribed a controlled substance at d/c from ED?: No Referrals: None,Stated [Primary Care Provider] - 1-2 days Time of Disposition: 11:47
[2022-01-27] MEDS ORDERED: ONDANSETRON 4 MG/2 ML VIAL IVP STA ×2 (10:40→11:45)
[2022-01-27 10:43] LABS: Basophils # (A) 0.1 k/uL (0-0.2); Basophils % (A) 0 %; Eosinophils # (A) 0.1 k/uL (0-0.7); Eosinophils % (A) 1 %; HCT 48.1 % (34.0-46.0); HGB 16.9 gm/dL (11.4-16.0); Lymphocytes # (A) 2.5 k/uL (1.0-4.8); Lymphocytes % (A) 17 %; MCH 32.4 pg (25.0-35.0); MCHC 35.1 g/dL (31.0-37.0); MCV 92.3 fL (80.0-100.0); Monocytes # (A) 0.5 k/uL (0-1.0); Monocytes % (A) 3 %; Neutrophils # (A) 11.3 k/uL (1.3-7.7); Neutrophils % (A) 78 %; Platelet Count 337 k/uL (150-450); RBC 5.21 m/uL (3.80-5.40); RDW 11.8 % (11.5-15.5); WBC 14.5 k/uL (3.8-10.6)
[2022-01-27 10:57] LABS: ALT 28 U/L (4-34); AST 31 U/L (14-36); African American GFR (CKD) >90 (>60 ml/min/1.73 sqM); Albumin 4.9 g/dL (3.5-5.0); Alkaline Phosphatase 94 U/L (38-126); Amylase 65 U/L (30-110); Anion Gap 10 mmol/L; Blood Urea Nitrogen 13 mg/dL (7-17); Calcium 9.9 mg/dL (8.4-10.2); Carbon Dioxide 23 mmol/L (22-30); Chloride 102 mmol/L (98-107); Glucose 128 mg/dL (74-99); Lipase 152 U/L (23-300); Non-African American GFR(CKD) >90 (>60 ml/min/1.73 sqM); Sodium 135 mmol/L (137-145); Total Bilirubin 0.9 mg/dL (0.2-1.3); Total Protein 7.6 g/dL (6.3-8.2)
[2022-01-27 10:58] LABS: Potassium 3.2 mmol/L (3.5-5.1)
--- NOTE | 2022-01-27 10:58 | XR ---
EXAMINATION TYPE: XR chest 1V portable DATE OF EXAM: 01/27/2022 COMPARISON: Chest x-ray April 16, 2021 HISTORY: Chest pain. TECHNIQUE: Single portable frontal view of the chest is obtained. FINDINGS: There is no suspicious peripheral focal air space opacity, pleural effusion, or pneumothor ax seen. The cardiac silhouette size is stable and within normal limits. Overlying EKG leads are red emonstrated. The osseous structures are intact. IMPRESSION: No acute process. No significant change from prior.
[2022-01-27 10:59] LABS: INR 0.9 (<1.2); Partial Thromboplastin Time 23.7 sec (22.0-30.0); Prothrombin Time 9.4 sec (9.0-12.0)
[2022-01-27] MEDS ORDERED: MORPHINE SULFATE 4 MG/ML SYRINGE IVP STA (11:46)
[2022-01-27] MEDS ORDERED: NITROGLYCERIN SL TABS 0.4 MG TAB SUBLINGUAL PRN (11:48)
[2022-01-27] MEDS: NITROGLYCERIN OINT 1 INCH/GM PACKET TOPICAL SCH ×3 (13:07→23:03)
[2022-01-27] MEDS: HYDROmorphone 0.5 MG/0.5 ML SYRINGE IVP PRN ×4 (13:22→23:05)
[2022-01-27] MEDS: PANTOPRAZOLE 40 MG/10 ML VIAL IVP SCH (13:22)
[2022-01-27] MEDS ORDERED: POTASSIUM CHLORIDE 20 MEQ in WATER FOR INJECTION 1 100ML.BAG IVPB STA (13:55)
--- NOTE | 2022-01-27 13:55 | P.CRDCN ---
History of Present Illness Consult date: 01/27/22 History of present illness: HISTORY OF PRESENT ILLNESS This is a 51-year-old female patient with past medical history of coronary artery disease reported by the patient and she has 2 stents that was done in [place]. She does not have a stair builder locally. Patient presented to the emergency center due to chest discomfort that been occurring for the past couple weeks and worsening. Pain is on the right side of her chest and states that all of a sudden it got worse and that brought her into the hospital. She states it radiates to her neck. She has nausea and vomiting today as currently retching. She is also calling out for something for pain. Blood pressure 127/84, heart rate 64, cord tire builder sinus rhythm. EKG is sinus rhythm with Q waves Chest x-ray shows no acute finding Troponin negative 1. WBC 14.5, hemoglobin 16.9. Potassium 3.2, sodium 135. Lipase 152. Home cardiac medications include Coreg 3.125 mg twice daily, hydrochlorothiazide 25 mg daily, Plavix 75 mg daily, atorvastatin 40 mg daily REVIEW OF SYSTEMS Constitutional: No fever, no chills. No weakness, fatigue or lethargy. EENT: No headache. No dizziness. Lungs: No shortness of breath, cough, no sputum production. No wheezing. Cardiovascular: Reports chest pain, no lower extremity edema. No palpitations. No paroxysmal nocturnal dyspnea. No orthopnea. No lightheadedness or dizziness. No syncopal episodes. Abdominal: Reports abdominal pain. Reports nausea, reports vomiting. No diarrhea. No constipation. No bloody or tarry stools. Reports loss of appetite. Genitourinary: No dysuria.. No urinary retention. Musculoskeletal: No myalgias. No muscle weakness, no gait dysfunction, no frequent falls. No back pain. No neck pain. Integumentary: No wounds, no lesions. No rash or pruritus. No unusual bruising. Neurologic: No aphasia. No facial droop. No change in mentation. No head injury. No headache. No paralysis. No paresthesia. Psychiatric: No depression. No anxiety. Endocrine: No abnormal blood sugars. PHYSICAL EXAMINATION Gen: This is a 51-year-old female appears to be older than stated age, resting on the ER stretcher actively retching VS: reviewed HEENT: Head is atraumatic, normocephalic. Pupils equal, round. Sclerae is anicteric. NECK: Supple. No JVD. No lymphadenopathy. No thyromegaly. LUNGS: Clear to auscultation. No wheezes or rhonchi. No intercostal retractions. HEART: Regular rate and rhythm. No murmur. ABDOMEN: Soft. Bowel sounds are present. No masses. No tenderness. EXTREMITIES: No pedal edema. No calf tenderness. NEUROLOGICAL: Patient is awake, alert and oriented x3. Cranial nerves 2 through 12 are grossly intact. ASSESSMENT Chest pain with initial troponin negative Abdominal pain with nausea and vomiting History of coronary artery disease and stent 2 per patient report Hypertension Hyperlipidemia PLAN Recommend resuming patient's home cardiac medications Repeat troponins Abdominal ultrasound to rule out abdominal pain and vomiting Replace potassium Obtain 2-D echocardiogram and Doppler study to assess cardiac structure and function Further recommendations to follow based upon clinical course Thank you kindly for this consultation. Nurse practitioner note has been reviewed, I agree with documented findings and plan of care. Patient was seen and examined. Past Medical History Past Medical History: Coronary Artery Disease (CAD) Additional Past Medical History / Comment(s): diverticulitis History of Any Multi-Drug Resistant Organisms: None Reported Past Surgical History: Heart Catheterization With Stent Past Anesthesia/Blood Transfusion Reactions: No Reported Reaction Date of Last Stent Placement:: 02/2021 Past Psychological History: No Psychological Hx Reported Smoking Status: Current every day smoker Past Alcohol Use History: None Reported Past Drug Use History: Marijuana Medications and Allergies Home Medications Medication Instructions Recorded Confirmed Type Atorvastatin [Lipitor] 40 mg PO DAILY 05/24/21 01/27/22 History Clopidogrel Bisulfate [Plavix] 75 mg PO DAILY 05/24/21 01/27/22 History Escitalopram [Lexapro] 20 mg PO DAILY 05/24/21 01/27/22 History Potassium Chloride [Klor-Con 10 ER] 10 meq PO DAILY 05/24/21 01/27/22 History carvediloL [Coreg] 3.125 mg PO BID 05/24/21 01/27/22 History hydroCHLOROthiazide [Hydrodiuril] 25 mg PO DAILY 05/24/21 01/27/22 History Allergies Allergy/AdvReac Type Severity Reaction Status Date / Time sulfamethoxazole AdvReac Nausea & Verified 01/27/22 10:59 [From Bactrim] Vomiting & Diarrhea trimethoprim [From Bactrim] AdvReac Nausea & Verified 01/27/22 10:59 Vomiting & Diarrhea Physical Exam Vitals: Vital Signs Temp Pulse Resp BP Pulse Ox 01/27/22 12:40 97.4 F L 63 16 120/77 100 01/27/22 10:22 98 F 64 20 127/84 100 Intake and Output 01/26/22 01/27/22 01/27/22 22:59 06:59 14:59 Other: Weight 58.967 kg Results 01/27/22 10:37 01/27/22 10:37 Cardiac Enzymes 01/27/22 01/27/22 Range/Units 10:37 10:37 AST 31 (14-36) U/L Troponin I <0.012 (0.000-0.034) ng/mL Coagulation 01/27/22 Range/Units 10:37 PT 9.4 (9.0-12.0) sec APTT 23.7 (22.0-30.0) sec CBC 01/27/22 Range/Units 10:37 WBC 14.5 H (3.8-10.6) k/uL RBC 5.21 (3.80-5.40) m/uL Hgb 16.9 H (11.4-16.0) gm/dL Hct 48.1 H (34.0-46.0) % Plt Count 337 (150-450) k/uL Comprehensive Metabolic Panel 01/27/22 Range/Units 10:37 Sodium 135 L (137-145) mmol/L Potassium 3.2 L (3.5-5.1) mmol/L Chloride 102 (98-107) mmol/L Carbon Dioxide 23 (22-30) mmol/L BUN 13 (7-17) mg/dL Creatinine 0.71 (0.52-1.04) mg/dL Glucose 128 H (74-99) mg/dL Calcium 9.9 (8.4-10.2) mg/dL AST 31 (14-36) U/L ALT 28 (4-34) U/L Alkaline Phosphatase 94 (38-126) U/L Total Protein 7.6 (6.3-8.2) g/dL Albumin 4.9 (3.5-5.0) g/dL Current Medications Generic Name Dose Route Start Last Admin Trade Name Freq PRN Reason Stop Dose Admin Aspirin 325 mg 01/28/22 09:00 Aspirin 325 Mg Tab PO DAILY JAYDEN Nitroglycerin 0.4 mg 01/27/22 11:48 Nitroglycerin Sl Tabs 0.4 Mg Tab SUBLINGUAL Q5M PRN Chest Pain Nitroglycerin 1 inch 01/27/22 12:00 Nitroglycerin Oint 1 Inch/Gm Packet TOPICAL Q6HR JAYDEN Intake and Output 01/26/22 01/27/22 01/27/22 22:59 06:59 14:59 Other: Weight 58.967 kg Patient Weight 01/28/22 06:59 Weight 58.967 kg 01/27/22 10:37 01/27/22 10:37
[2022-01-27] MEDS ORDERED: AZITHROMYCIN 500 MG in SODIUM CHLORIDE 0.9% 250 ML IVPB SCH ×2 (14:15→20:15)
--- NOTE | 2022-01-27 14:32 | US ---
EXAMINATION TYPE: US abdomen complete DATE OF EXAM: 01/27/2022 COMPARISON: NONE CLINICAL HISTORY: abd pain. abdominal pain, nausea and vomiting TECHNIQUE: Multiple sonographic images of the abdomen are obtained. FINDINGS: EXAM MEASUREMENTS: Liver Length: 14.5cm Gallbladder Wall: 0.2 cm CBD: 0.8 cm Spleen: 8.7 cm Right Kidney: 9.5 x 3.5 x 3.6 cm Left Kidney: 9.0 x 4.6 x 3.7 cm Pancreas: Tail obscured by overlying bowel gas. Duct = 0.3cm Liver: wnl Gallbladder: no evidence of stones Evidence for sonographic Velasco's sign: no CBD: dilated Spleen: appears wnl Right Kidney: no evidence of hydronephrosis Left Kidney: no evidence of hydronephrosis Upper IVC: wnl Abd Aorta: bifurcation obscured by overlying bowel content The liver is homogenous. The intrahepatic portion of the IVC and proximal abdominal aorta are within normal limits. There is no evidence of cholelithiasis. Common bile duct is unremarkable. The visu alized portions of the pancreas are homogenous. The spleen is unremarkable. Kidneys are symmetric a nd free of hydronephrosis. No renal lesions are seen. IMPRESSION: Common bile duct is mildly dilated. Correlate clinically.
[2022-01-27] MEDS ORDERED: HYDROcodone/APAP 5-325MG 1 EACH TAB PO PRN (15:45)
[2022-01-27 16:17] LABS: Appearance,Urine Clear (Clear); Bilirubin,Urine Negative (Negative); Blood,Urine Negative (Negative); Color,Urine Yellow; Glucose,Urine (UA) Negative (Negative); Ketones,Urine 3+ (Negative); Leukocyte Esterase,Urine Negative (Negative); Nitrite,Urine Negative (Negative); Protein,Urine Trace (Negative); Specific Gravity,Urine 1.026 (1.001-1.035)
[2022-01-27 16:25] LABS: Amphetamine Screen,Urine Not Detected (NotDetected); Barbiturate Screen,Urine Not Detected (NotDetected); Benzodiazepines Screen,Urine Not Detected (NotDetected); Cocaine Screen,Urine Not Detected (NotDetected); Methadone Screen, Urine Not Detected (NotDetected); Opiate Screen,Urine Detected (NotDetected); Oxycodone Screen, Urine Not Detected (NotDetected); Phencyclidine Screen,Urine Not Detected (NotDetected); Tricyclic Antidepressant,Urine Not Detected (NotDetected); Urn Cannabinoid Scrn Detected (NotDetected)
--- NOTE | 2022-01-27 17:36 | CT ---
EXAMINATION TYPE: CT angio chest DATE OF EXAM: 01/27/2022 COMPARISON: Radiograph same day HISTORY: 51-year-old female shortness of breath, r/o PE, right breast tenderness TECHNIQUE: Contiguous axial scanning of the chest performed with IV Contrast, patient injected with 1 00 mL of Isovue 370. Coronal and sagittal MIP reconstructions performed. CT DLP: 158.7 mGycm Automated exposure control for dose reduction was used. FINDINGS: The heart is normal size without pericardial effusion. No flattening of the interventricular septum o r reflux of contrast into the hepatic veins. Aorta normal caliber with dementia large vessel branching anatomy. No thoracic lymphadenopathy by CT size criteria. Satisfactory opacification of the pulmonary arterial system. Some limitation due to breathing motion. No definite pulmonary embolus. Mild to moderate diffuse bronchial wall thickening. No ronit consolidation or pleural effusion. Visualized upper abdomen shows mild diffuse thickening of the left adrenal gland without discrete nod ularity. Bones: Mild degenerative disc disease mid to lower thoracic spine. Slight dextroconvex curvature mid thoracic spine. IMPRESSION: 1. MILD BREATHING MOTION ARTIFACT. NO DEFINITE PULMONARY EMBOLUS. 2. MILD TO MODERATE DIFFUSE BRONCHIAL WALL THICKENING. CORRELATE FOR BRONCHITIS OR UNCONTROLLED ASTHM A. NO FOCAL INFILTRATE IS SEEN.
[2022-01-27] MEDS: NICOTINE 14MG/24HR PATCH TRANSDERM SCH (18:12)
[2022-01-27] MEDS: carvediloL 3.125 MG TAB PO SCH (20:27)
--- NOTE | 2022-01-27 21:20 | P.CONS ---
History of Present Illness - Reason for Consult Consult date: 01/27/22 sepsis Requesting physician: Susan Kwok - Chief Complaint right-sided chest pain x few days - History of Present Illness Patient is a 51-year-old female with a past medical history significant for coronary artery disease with the patient mentioned she did have PTCA and stenting 2 done in [place], patient do have a significant history of smoking and continued to smoke about a pack a day, patient is presenting to the hospital complaining of right-sided chest pain that apparently has been going on for the last 2 weeks however has gotten worse over the last day or 2 for the patient presented to the hospital patient denies any history of any trauma she's been complaining of pain to the right side of the chest just above the breast area describing it to be sharp almost 10 out of 10 and some relief with the pain medication did have associated nausea and episode of vomiting today but no abdominal pain or diarrhea, the patient did have a chronic cough because of her smoking denies any worsening cough or sputum production no hemoptysis, increasing the patient was evaluated by the ER physician on arrival to the ER the patient was afebrile patient did have elevated white no 14.5 with a left shift kidney function has been normal liver enzymes are normal rate dressing was positive chest x-ray was reported negative patient was started on Rocephin and Zithromax infectious disease was consulted for further management of antibiotic therapy Review of Systems Positive point has been mentioned in the HPI rest of the systems are negative Past Medical History Past Medical History: Coronary Artery Disease (CAD) Additional Past Medical History / Comment(s): diverticulitis History of Any Multi-Drug Resistant Organisms: None Reported Past Surgical History: Heart Catheterization With Stent Past Anesthesia/Blood Transfusion Reactions: No Reported Reaction Date of Last Stent Placement:: 02/2021 Past Psychological History: No Psychological Hx Reported Smoking Status: Current every day smoker Past Alcohol Use History: None Reported Past Drug Use History: Marijuana Medications and Allergies Home Medications Medication Instructions Recorded Confirmed Type Atorvastatin [Lipitor] 40 mg PO DAILY 05/24/21 01/27/22 History Clopidogrel Bisulfate [Plavix] 75 mg PO DAILY 05/24/21 01/27/22 History Escitalopram [Lexapro] 20 mg PO DAILY 05/24/21 01/27/22 History Potassium Chloride [Klor-Con 10 ER] 10 meq PO DAILY 05/24/21 01/27/22 History carvediloL [Coreg] 3.125 mg PO BID 05/24/21 01/27/22 History hydroCHLOROthiazide [Hydrodiuril] 25 mg PO DAILY 05/24/21 01/27/22 History Allergies Allergy/AdvReac Type Severity Reaction Status Date / Time sulfamethoxazole AdvReac Nausea & Verified 01/27/22 10:59 [From Bactrim] Vomiting & Diarrhea trimethoprim [From Bactrim] AdvReac Nausea & Verified 01/27/22 10:59 Vomiting & Diarrhea Physical Exam Vitals: Vital Signs Temp Pulse Resp BP Pulse Ox 01/27/22 12:40 97.4 F L 63 16 120/77 100 01/27/22 10:22 98 F 64 20 127/84 100 Intake and Output 01/26/22 01/27/22 01/27/22 22:59 06:59 14:59 Other: Weight 58.967 kg GENERAL DESCRIPTION: Middle-aged female lying in bed, no distress. No tachypnea or accessory muscle of respiration use. HEENT: Shows Pallor , no scleral icterus. Oral mucous membrane is dry. No pharyngeal erythema or thrush NECK: Trachea central, no thyromegaly. LUNGS: Unlabored breathing. Clear to auscultation anteriorly. No wheeze or crackle. HEART: S1, S2, regular rate and rhythm. No loud murmur, right-sided chest wall with no swelling no redness no tenderness ABDOMEN: Soft, no tenderness , guarding or rigidity, no organomegaly EXTREMITIES: No edema of feet. SKIN: No rash, no masses palpable. NEUROLOGICAL: The patient is awake, alert, oriented x3, mood and affect normal. Results CBC & Chem 7: 01/27/22 10:37 01/27/22 10:37 Labs: Abnormal Lab Results - Last 24 Hours (Table) 01/27/22 01/27/22 Range/Units 10:37 10:37 WBC 14.5 H (3.8-10.6) k/uL Hgb 16.9 H (11.4-16.0) gm/dL Hct 48.1 H (34.0-46.0) % Neutrophils # 11.3 H (1.3-7.7) k/uL Sodium 135 L (137-145) mmol/L Potassium 3.2 L (3.5-5.1) mmol/L Glucose 128 H (74-99) mg/dL Assessment and Plan (1) Leukocytosis Current Visit: Yes Status: Acute Code(s): D72.829 - ELEVATED WHITE BLOOD CELL COUNT, UNSPECIFIED SNOMED Code(s): 071384129 Plan: 1patient is in the hospital with right-sided chest pain patient currently do not have any point tenderness or any cellulitis at the site with the patient did complain of pain chest x-ray was reported negative however the patient to have elevated white count and significant history of smoking concerning for possible bronchitis versus early pneumonia 2-patient benefit from CT of the chest to better define underling Pathology 3-we will check a CRP and Procalcitonin 4-continue with the Rocephin and Zithromax while awaiting further workup to be finalize We will follow on clinical condition and cultures to further adjust medication if needed Thank you for this consultation will follow this patient with you Time with Patient: Greater than 30
[2022-01-27 22:55] VITALS: RESP 18
--- NOTE | 2022-01-28 01:08 | HP ---
HISTORY AND PHYSICAL CHIEF COMPLAINTS: Chest pain, vomiting, and shortness of breath. HISTORY OF PRESENT ILLNESS: This 51-year-old woman with a past medical history of CAD and stent. She was sick for the last several days. Patient complains of shortness of breath, some chest pain as well as some vomiting. The patient is extremely sick and is being closely monitored in the ER at this time. The chest x-ray which I personally reviewed showed possible pneumonia in the right lower lobe and the patient was admitted for further evaluation and treatment. Patient also complains of abdominal pain. Abdominal ultrasound has been ordered also, there is no history of any fever, rigors, or chills. White count is elevated. PAST MEDICAL HISTORY: Reviewed include CAD, stent, rest of the history and rest of the chart is reviewed. HOME MEDICATIONS: Reviewed include dose and rest of the medications reviewed. ALLERGIES: Reviewed include Bactrim. FAMILY HISTORY: No history of heart disease or strokes in the family. SOCIAL HISTORY: Current smoking and THC. REVIEW OF SYSTEMS: A 14-point review is negative except as mentioned earlier. PHYSICAL EXAMINATION: VITAL SIGNS: Pulse is 63, blood pressure ntd, respirations 16. HEENT: Conjunctivae normal. NECK: No jugular venous distention. No carotid bruit. CARDIOVASCULAR: S1, S2 muffled. RESPIRATIONS: A few scattered rhonchi and crackles. ABDOMEN: Soft, nontender. LEGS: No edema. NERVOUS SYSTEM: No focal deficit. SKIN: No ulcer, rash, bleeding. JOINTS: No active deforming arthropathy. LABS: WBC 14.5, sodium 135. Rest of the labs are pending. ASSESSMENT: 1. Chest pain, rule out coronary disease. 2. Possible right lower lobe pneumonia. 3. Vomiting, rule out gallbladder disease, possible acute gastritis. 4. History of coronary artery disease stent. 5. History of diverticulitis. 6. Multiple medical issues. RECOMMENDATIONS: This 51-year-old woman presented with multiple complex medical issues. We will monitor the patient closely. Cardiology has been consulted for the possibility of coronary artery disease. The initial troponins are negative. I would also recommend to initiate broad-spectrum IV antibiotics cultures and treat empirically for pneumonia, otherwise rest of the labs will be done including ultrasound of the abdomen, rule out any acute abdomen. I would also recommend a CT angio of the chest and we will continue to monitor. COVID RSV influenza testing has also been noted. As mentioned earlier, the patient is extremely sick at this time. We will continue to monitor. Pulmonary and Infectious Disease will also be consulted. See orders for details. MMODL / IJN: [id number] / MTDD
[2022-01-28] MEDS: HYDROmorphone 0.5 MG/0.5 ML SYRINGE IVP PRN ×3 (02:23→08:27)
[2022-01-28] MEDS: NITROGLYCERIN OINT 1 INCH/GM PACKET TOPICAL SCH (04:30)
[2022-01-28 07:48] VITALS: BP 112/73; PULSE 66; TEMP 98.2
[2022-01-28] MEDS: NICOTINE 14MG/24HR PATCH TRANSDERM SCH (08:14)
[2022-01-28] MEDS: PANTOPRAZOLE 40 MG/10 ML VIAL IVP SCH (08:14)
[2022-01-28] MEDS: carvediloL 3.125 MG TAB PO SCH (08:14)
--- NOTE | 2022-01-28 08:36 | CA ---
Transthoracic Echo Report Name: Lata Sumner Age: 51 Gender: F : 1970 Exam Date: 01/27/2022 14:27 Exam Location: [facility] Ht (in): 48 Wt (lb): 135 Ordering Physician: Linsey Meier Attending/Referring Phys: [id number], Hardeep Walking Dragline Operator Doris Pinto RDCS Procedure CPT: Indications: LVF Cardiac Hx: Technical Quality: Fair Contrast 1: Total Dose (mL): Contrast 2: Total Dose (mL): MEASUREMENTS (Male / Female) Normal Values 2D ECHO LV Diastolic Diameter PLAX 4.0 cm 4.2 - 5.9 / 3.9 - 5.3 cm LV Systolic Diameter PLAX 3.0 cm IVS Diastolic Thickness 1.0 cm 0.6 - 1.0 / 0.6 - 0.9 cm LVPW Diastolic Thickness 0.8 cm 0.6 - 1.0 / 0.6 - 0.9 cm LV Relative Wall Thickness 0.5 RV Internal Dim ED PLAX 3.5 cm LA Volume 30.8 cm??? 18 - 58 / 22 - 52 cm??? M-MODE Aortic Root Diameter MM 2.4 cm LA Systolic Diameter MM 2.4 cm LA Ao Ratio MM 1.0 AV Cusp Separation MM 1.6 cm DOPPLER AV Peak Velocity 136.8 cm/s AV Peak Gradient 7.5 mmHg AV Mean Velocity 93.8 cm/s AV Mean Gradient 4.0 mmHg AV Velocity Time Integral 23.9 cm LVOT Peak Velocity 113.7 cm/s LVOT Peak Gradient 5.2 mmHg LVOT Velocity Time Integral 22.3 cm MV Area PHT 3.9 cm??? Mitral E Point Velocity 59.4 cm/s Mitral A Point Velocity 71.8 cm/s Mitral E to A Ratio 0.8 MV Deceleration Time 194.4 ms TR Peak Velocity 160.7 cm/s TR Peak Gradient 10.3 mmHg Right Ventricular Systolic Press 15.3 mmHg FINDINGS Left Ventricle Left ventricular wall thickness normal. Apical septal, mid septal and inferior apical woodard hypokinesis. Left ventricular ejection fraction is estimated at 45 %. Right Ventricle Normal right ventricular size and function. Right ventricular systolic pressure within normal limits. Right Atrium Normal right atrial size. Left Atrium Normal left atrial size. Mitral Valve Structurally normal mitral valve. Mild mitral regurgitation. Aortic Valve No aortic valve stenosis or regurgitation. Tricuspid Valve Structurally normal tricuspid valve. Mild tricuspid regurgitation. Pulmonic Valve Trace pulmonic regurgitation. Pericardium No pericardial effusion. Aorta Normal size aortic root and proximal ascending aorta. CONCLUSIONS Mild LV systolic dysfunction Mild mitral regurgitation Previewed by: Dr. Celestino Marie MD (Electronically Signed) Final Date: 28 January 2022 08:35
[2022-01-28] MEDS ORDERED: ATORVASTATIN 40 MG TAB PO SCH (09:00)
[2022-01-28] MEDS ORDERED: CLOPIDOGREL 75 MG TAB PO SCH (09:00)
[2022-01-28] MEDS ORDERED: hydroCHLOROthiazide 25 MG TAB PO SCH (09:00)
[2022-01-28] MEDS ORDERED: ASPIRIN 325 MG TAB PO SCH (09:00)
[2022-01-28] MEDS ORDERED: POTASSIUM CHLORIDE ER 10 MEQ TAB.ER.PRT PO SCH (09:00)
[2022-01-28] MEDS ORDERED: POTASSIUM CHLORIDE ER 20 MEQ TAB.ER PO SCH (10:00)
--- NOTE | 2022-01-28 10:06 | PN ---
PROGRESS NOTE HISTORY OF PRESENT ILLNESS: Lata is a 51-year-old lady who is with history of coronary artery disease, status post prior angioplasty, who presented to the emergency room complaining of chest discomfort that is mostly right-sided and seems musculoskeletal. She also complains of nausea, vomiting, and retching. I am seeing her for the first time this morning and at the time of my evaluation, she appears comfortable at rest, has had 3 sets of cardiac enzymes that are all within normal limits. Had an echocardiogram that showed mild LV systolic dysfunction with evidence of prior myocardial infarction. The patient's nausea, vomiting have resolved and her only symptom at the moment is discomfort in her right breast which is going to be evaluated and treated by the primary care physician. PHYSICAL EXAMINATION: GENERAL: She is comfortable at rest, afebrile. VITAL SIGNS: Stable. CHEST: Exam reveals good air entry bilaterally. HEART: Exam reveals first and second heart sounds. No gallop, no murmur. ABDOMEN: Soft . EXTREMITIES: Did not reveal any edema. Peripheral pulses are felt. ASSESSMENT: Atypical chest pain in a patient with known coronary artery disease, status post prior angioplasty. PLAN: The patient did not have any pulmonary embolism. Echocardiogram shows mild LV systolic dysfunction. The patient wishes to follow up with her own adult basic education teacher. We do not know when the recent stress testing was, but this can be arranged as outpatient through her own physician. She is currently on Coreg, Plavix, and should resume the Lipitor that she is on. She is on nitroglycerin paste, we can stop it at this time. MMODL / IJN: [id number] /
[2022-01-28 10:51] LABS: Basophils # (A) 0.02 X 10*3/uL (0.00-0.10); Basophils % (A) 0.2 %; Eosinophils % (A) 1.2 %; HCT 36.6 % (37.2-46.3); HGB 12.7 g/dL (12.0-15.0); Immature Grans, Automated 0.2 %; Lymphocytes # (A) 3.36 X 10*3/uL (0.90-5.00); Lymphocytes % (A) 40.9 %; MCH 32.5 pg (27.0-32.0); MCHC 34.7 g/dL (32.0-37.0); MCV 93.6 fL (80.0-97.0); Mean Platelet Volume 9.2 fL (9.5-12.2); Monocytes # (A) 0.54 X 10*3/uL (0.20-1.00); Monocytes % (A) 6.6 %; NRBC Per 100 WBC 0 /100 WBCS (0.0-0.0); Neutrophils # (A) 4.17 X 10*3/uL (1.80-7.70); Neutrophils % (A) 50.9 %; Platelet Count 286 X 10*3/uL (140-440); RBC 3.91 X 10*6/uL (4.10-5.20); RDW 12.3 % (11.5-14.5); WBC 8.21 X 10*3/uL (4.50-10.00)
--- NOTE | 2022-01-28 11:18 | P.CNPUL ---
History of Present Illness Consult date: 01/28/22 Requesting physician: Susan Kwok Reason for consult: chest pain Chief complaint: Vomiting, chest pain History of present illness: This is a 51-year-old female patient with a known history of coronary artery disease with previous stent placements 2, diverticulitis, chronic and ongoing tobacco dependence of greater than 30 years, marijuana use. She presented here to the emergency room yesterday with complaints of a 2 week history of chest pain that was getting worse. She had some associated nausea and vomiting. Mild diaphoresis. Somewhat short of breath. Chest x-ray revealed no acute cardiopulmonary process. EKG revealed sinus bradycardia with slight arrhythmia. Abdominal ultrasound revealed a mild dilatation of the common bile duct. CT angiogram ruled out pulmonary embolism. There is [id number] bronchial wall thickening or possible bronchitis. Echocardiogram revealed mildly impaired left ventricular systolic function with ejection fraction of 45%. Some septal, inferior apical wall hypokinesia. No significant valvular heart disease. Troponins were negative 2. Legionella screen negative. Urine drug screen positive for marijuana and opiates. White count 8.2. Hemoglobin 12.7. Sodium 135. Potassium 3.2. Glucose 128. C-reactive protein less than 0.5. Amylase 65. Lipase 152. Influenza screen negative. CoVID screen negative. RSV screen negative. She was initiated on ceftriaxone and azithromycin along with morphine and Dilaudid for pain control. NicoDerm patch is applied. She is seen today in consultation on the regular medical floor. She is sitting up in bed. Awake and alert in no acute distress. She denies any chest pain today. No shortness of breath. No cough no congestion no fever. Maintaining O2 saturations in the 90s on room air. She is anxious to go home. Review of Systems REVIEW OF SYSTEMS: CONSTITUTIONAL: Denies any recent significant weight loss or weight gain. EYES: Denies change in vision. EARS, NOSE, MOUTH, THROAT: Denies headaches, denies sore throat. CARDIOVASCULAR: Positive for chest pain, no palpitations or syncopal episodes. RESPIRATORY: Positive for shortness of breath, no cough, congestion or hemoptysis. GASTROINTESTINAL: Positive for nausea and vomiting GENITOURINARY: Denies hematuria, denies infections. MUSKULOSKELETAL: Denies pain, denies swelling. INTEGUMENTARY: Denies rash, denies eczema. NEUROLOGICAL: Denies recent memory loss, no recent seizure activity. PSYCHIATRIC: Denies anxiety, denies depression. HEMATOLOGIC/LYMPHATIC: Denies anemia, denies enlarged lymph nodes. Past Medical History Past Medical History: Coronary Artery Disease (CAD) Additional Past Medical History / Comment(s): diverticulitis History of Any Multi-Drug Resistant Organisms: None Reported Past Surgical History: Heart Catheterization With Stent Past Anesthesia/Blood Transfusion Reactions: No Reported Reaction Date of Last Stent Placement:: 02/2021 Past Psychological History: No Psychological Hx Reported Smoking Status: Current every day smoker Past Alcohol Use History: None Reported Past Drug Use History: Marijuana Medications and Allergies Home Medications Medication Instructions Recorded Confirmed Type Atorvastatin [Lipitor] 40 mg PO DAILY 05/24/21 01/27/22 History Clopidogrel Bisulfate [Plavix] 75 mg PO DAILY 05/24/21 01/27/22 History Escitalopram [Lexapro] 20 mg PO DAILY 05/24/21 01/27/22 History Potassium Chloride [Klor-Con 10 ER] 10 meq PO DAILY 05/24/21 01/27/22 History carvediloL [Coreg] 3.125 mg PO BID 05/24/21 01/27/22 History hydroCHLOROthiazide [Hydrodiuril] 25 mg PO DAILY 05/24/21 01/27/22 History Pantoprazole Sodium [Protonix] 40 mg PO DAILY #10 tab 01/28/22 Rx cefUROXime axetiL [Ceftin] 500 mg PO BID 3 Days #6 tab 01/28/22 Rx Allergies Allergy/AdvReac Type Severity Reaction Status Date / Time sulfamethoxazole AdvReac Nausea & Verified 01/27/22 10:59 [From Bactrim] Vomiting & Diarrhea trimethoprim [From Bactrim] AdvReac Nausea & Verified 01/27/22 10:59 Vomiting & Diarrhea Physical Exam Vitals: Vital Signs Temp Pulse Pulse Resp BP BP Pulse Ox 01/28/22 08:31 96 01/28/22 08:17 18 01/28/22 07:00 98.2 F 66 18 112/73 100 01/28/22 01:42 97.7 F 67 18 104/64 100 01/27/22 23:03 75 97/58 01/27/22 20:00 89 18 01/27/22 19:39 98.3 F 89 18 97/58 94 L 01/27/22 15:59 98 F 79 24 102/65 98 12/23/22 12:40 97.4 F L 63 16 120/77 100 Intake and Output 01/27/22 01/28/22 01/28/22 22:59 06:59 14:59 Intake Total 430 500 120 Balance 430 500 120 Intake: Intake, IV Titration 250 Amount Azithromycin 500 mg In 250 Sodium Chloride 0.9% 250 ml @ 250 mls/hr IVPB Q24H [facility] Rx#:[id number] Oral 180 500 120 Other: Voiding Method Toilet Toilet Weight 58.967 kg GENERAL EXAM: Alert, pleasant 51-year-old female, on room air oxygen with saturations up to 100%, comfortable in no apparent distress. HEAD: Normocephalic. EYES: Normal reaction of pupils, equal size. NOSE: Clear with pink turbinates. THROAT: No erythema or exudates. NECK: No masses, no JVD. CHEST: No chest wall deformity. LUNGS: Equal air entry with no crackles, wheeze, rhonchi or dullness. CVS: S1 and S2 normal with no audible murmur, regular rhythm. ABDOMEN: No hepatosplenomegaly, normal bowel sounds, no guarding or rigidity. SPINE: No scoliosis or deformity SKIN: No rashes CENTRAL NERVOUS SYSTEM: No focal deficits, tone is normal in all 4 extremities. EXTREMITIES: There is no peripheral edema. No clubbing, no cyanosis. Peripheral pulses are intact. Results - Laboratory Findings CBC and BMP: 01/28/22 06:19 01/27/22 10:37 PT/INR, D-dimer PT 9.4 sec (9.0-12.0) 01/27/22 10:37 INR 0.9 (<1.2) 01/27/22 10:37 D-Dimer 0.44 mg/L FEU (<0.60) 01/27/22 10:37 Abnormal lab findings: Abnormal Labs 01/27/22 01/27/22 01/27/22 10:37 10:37 15:50 WBC 14.5 H RBC Hgb 16.9 H Hct 48.1 H MCH MPV Neutrophils # 11.3 H Sodium 135 L Potassium 3.2 L Glucose 128 H Urine Protein Trace H Urine Ketones 3+ H Urine Opiates Screen Detected H U Marijuana (THC) Screen Detected H 12/24/22 06:19 WBC RBC 3.91 L Hgb Hct 36.6 L MCH 32.5 H MPV 9.2 L Neutrophils # Sodium Potassium Glucose Urine Protein Urine Ketones Urine Opiates Screen U Marijuana (THC) Screen - Diagnostic Findings Chest x-ray: image reviewed CT scan - chest: image reviewed Assessment and Plan Assessment: Atypical chest pain associated with nausea and vomiting. Acute coronary syndrome ruled out. Dyspnea of unclear etiology. Chest x-ray shows no acute pulmonary process. Possible bronchitis. Suspect underlying COPD Chronic and ongoing tobacco dependence of greater than 35 years Coronary artery disease with previous stent placement 2 Hypertension Hyperlipidemia History of anxiety/depression History of diverticulosis Plan: The patient was seen and evaluated Chest x-ray, CAT scan, labs and medications reviewed Stable and on room air Cleared for discharge from the pulmonary standpoint Educated regarding the importance of complete smoking cessation Offered appointment in our office to evaluate for suspected underlying COPD I have personally seen and examined the patient, performed the documentation and the assessment and plan as written. Number of minutes spent on the visit: 20.
--- NOTE | 2022-01-28 11:21 | DS ---
DISCHARGE SUMMARY FINAL DIAGNOSES: 1. Chest pain, myocardial infarction ruled out. 2. Possible right lower lobe pneumonia, early. 3. Vomiting, possible acute gastritis. 4. History of coronary artery disease. 5. History of diverticulitis. 6. Multiple medical issues. DISCHARGE DISPOSITION: The patient will be discharged in stable condition and guarded prognosis. Pulmonary cleared the patient for discharge. The patient is extremely keen on going home. HISTORY OF PRESENT ILLNESS: This is a 51-year-old woman with a past medical history of multiple problems, admitted with chest pain and some vomiting, right lower lobe pneumonia suspected. The patient was seen by Cardiology and Pulmonology. Recommended to follow up with Pulmonology, Cardiology, and Primary Physician in the outpatient setting. The patient understands and agrees, stable but overall prognosis guarded. PHYSICAL EXAMINATION: VITAL SIGNS: Stable. CARDIOVASCULAR: S1, S2. ABDOMEN: Soft. NERVOUS SYSTEM: No focal deficits. DISCHARGE ADVICE AND MEDICATIONS: Continue the home medications plus Ceftin 500 mg p.o. b.i.d. for 3 days and Protonix 40 daily[address] Follow up with [address]. Enriqueta Li as advised. MMODL / ARTHURN: [id number] /
[2022-01-28 11:33] LABS: Chol/HDL Ratio 2.34 Ratio; LDL Cholesterol,Calculated 45.2 mg/dL (0.0-131.0)
[2022-01-28 11:48] LABS: ALT 19 U/L (8-44); AST 14 U/L (13-35); African American GFR (CKD) 99.6 (60.0-200.0); Albumin 3.8 g/dL (3.8-4.9); Albumin/Globulin Ratio 2.24 (1.60-3.17); Alkaline Phosphatase 48 U/L (41-126); BUN/Creat Ratio 12.13 Ratio (12.00-20.00); Blood Urea Nitrogen 9.7 mg/dL (9.0-27.0); Calcium 8.8 mg/dL (8.7-10.3); Carbon Dioxide 25.6 mmol/L (20.0-27.5); Chloride 96 mmol/L (96-109); Globulin 1.7 g/dL (1.6-3.3); Glucose 114 mg/dL (70-110); Sodium 132 mmol/L (135-145); Total Protein 5.5 g/dL (6.2-8.2)
[2022-01-30 11:27] LABS: Potassium 2.6 mmol/L (3.5-5.5)
[2022-01-31 03:18] LABS: Mycoplasma IgG Antibody (EIA) 2.25 INDEX (<=0.90); Mycoplasma IgM Antibody 0.65 INDEX (<=0.90)
== END 2022-01-28 10:15 | disposition home or self-care (01) ==
LOC: EC 10:20 → 6NMEDSUR 11:48
PROVIDERS: ADMIT Hospitalist; ATTEND Hospitalist
DX: R07.89 Other chest pain (principal); R06.02 Shortness of breath; D72.829 Elevated white blood cell count, unspecified; R11.2 Nausea with vomiting, unspecified; R10.9 Unspecified abdominal pain; R61 Generalized hyperhidrosis; I25.10 Atherosclerotic heart disease of native coronary artery without angina pectoris; K57.90 Diverticulosis of intestine, part unspecified, without perforation or abscess without bleeding; I10 Essential (primary) hypertension; R00.1 Bradycardia, unspecified; I44.7 Left bundle-branch block, unspecified; I34.0 Nonrheumatic mitral (valve) insufficiency; I25.2 Old myocardial infarction; E78.5 Hyperlipidemia, unspecified; F17.210 Nicotine dependence, cigarettes, uncomplicated; R05.3 Chronic cough; K83.8 Other specified diseases of biliary tract; F32.A Depression, unspecified; F41.9 Anxiety disorder, unspecified; Z79.02 Long term (current) use of antithrombotics/antiplatelets; Z79.899 Other long term (current) drug therapy; Z88.1 Allergy status to other antibiotic agents; Z88.2 Allergy status to sulfonamides; Z95.5 Presence of coronary angioplasty implant and graft
CPT/HCPCS: 96376 ×3; 96365; 96366; 96367; 96375; 99285; 36415; 94760; 93005; 93306; 85379; 86738 ×2; 80061; 80053 ×2; 87449; 85652; 82150; 83690; 83735; 84484; 85025 ×2; 85610; 85730; 86140; 81003; 87040; 80306; 87086; 84145; 87636; 71045; 76700; 71275; G0378 ×2; S4990 ×2; J2270; J3480; J2405; J0456; J0696 ×2; C9113 ×2; J1170 ×2; Q9967

== ENCOUNTER → 2022-08-16 | Outpatient (CLI) | payer OTHER ==
--- NOTE | 2022-08-17 20:26 | MM ---
Reason for Exam: Screening (asymptomatic). Baseline mammogram. Patient History: Menarche at age 14. First Full-Term at age 21. Paternal grandmother had ovarian cancer. Last menstrual period: 08/11/2022 Risk Values: Jodee 5 year model risk: 0.9%. NCI Lifetime model risk: 7.9%. Prior Study Comparison: Patient's first Mammogram. No prior studies available for comparison. Tissue Density: The breast tissue is heterogeneously dense. This may lower the sensitivity of mammography. Findings: Analyzed By CAD. There is no suspicious group of microcalcifications, significant mass, or other discrete abnormality in either breast. Overall Assessment: Negative, BI-RAD 1 Management: Screening Mammogram of both breasts in 1 year. . Patient should continue monthly self-breast exams. A clinical breast exam by your physician is recommended on an annual basis. This exam should not preclude additional follow-up of suspicious palpable abnormalities. Note on Jodee scores and lifetime risk: 1. A Jodee score greater than 3% is considered moderate risk. If this is the case, consider specialist referral to assess eligibility for a risk reducing agent. 2. If overall lifetime risk for the development of breast cancer is 20% or higher, the patient may qualify for future screening with alternating mammogram and breast MRI. Electronically signed and approved by: Delicia Quick M.D. Radiologist
== END | disposition home or self-care (01) ==
LOC: RADMAMWWP 14:01
PROVIDERS: ATTEND Obstetrics & Gynecology
DX: Z12.31 Encounter for screening mammogram for malignant neoplasm of breast (principal); Z80.41 Family history of malignant neoplasm of ovary
CPT/HCPCS: 77063; 77067